=== PATIENT | female | born 1955 | race African-American/Black ===

== ENCOUNTER 2018-08-03 13:14 | Outpatient (CLI) | payer OTHER ==
--- NOTE | 2018-08-03 13:34 | RAD ---
F2 views chest Comparison made previous exam from 07/26/2015. 2 views chest demonstrate cardiomegaly. Areas of scarring and postsurgical vickie seen in the right midlung. Old healed right fifth rib fractures seen. No acute intrathoracic abnormality seen. IMPRESSION: Postsurgical changes seen in the right midlung.
== END 2018-08-03 13:15 | disposition home or self-care (01) ==
LOC: RAD 13:14
PROVIDERS: ATTEND Thoracic Surgery (Cardiothoracic Vascular Surgery)
DX: C78.30 Secondary malignant neoplasm of unspecified respiratory organ (principal); Z98.890 Other specified postprocedural states
CPT/HCPCS: 71046

== ENCOUNTER 2018-11-02 14:54 | Inpatient (IN) | payer MEDICARE, MEDICAID ==
[2018-11-02 16:43] LABS: #Eosinphils 0.1 thou/uL (0.0-0.7); #Lymphocytes 2.7 thou/uL (1.20-3.40); #Monocytes 0.6 thou/uL (0.11-0.59); #Neutrophils 4.7 thou/uL (1.40-6.50); %Basophils 0.2 % (0.0-1.0); %Eosinophils 0.7 % (0.0-10.0); %Lymphocytes 33.5 % (21.0-51.0); %Monocytes 6.9 % (0.0-10.0); %Neutrophils 58.6 % (42.0-75.0); Hemoglobin 10.6 g/dL (12.0-16.0); Mean Corpuscular HGB CONC 33.2 g/dL (32.0-36.0); Mean Corpuscular Hemoglobin 29.1 pg (27.0-31.0); Mean Corpuscular Volume 87.6 fL (78.0-98.0); Mean Platelet Volume 7.8 fL (7.4-10.4); Platelet Count 252 thou/uL (130-400); RBC Distribution Width 15.1 % (11.5-14.5); Red Blood Cell (RBC) Count 3.66 mill/uL (4.20-5.40)
[2018-11-02 17:04] LABS: ALT (SGPT) 24 U/L (8-55); AST (SGOT) 25 U/L (5-34); Alkaline Phosphatase 61 U/L (40-150); Anion Gap 18 mmol/L (10-20); BUN (Urea Nitrogen) 50 mg/dL (9.8-20.1); Bilirubin, Total 0.3 mg/dL (0.2-1.2); Calc. Creatinine Clearance 0 mL/min (70-130); Calcium 9.3 mg/dL (7.8-10.44); Carbon Dioxide 17 mmol/L (23-31); Chloride 108 mmol/L (98-107); Estimated GFR-MDRD 11; Globulin 3.8 g/dL (2.4-3.5); Potassium 5.7 mmol/L (3.5-5.1); Protein, Total 7.8 g/dL (6.0-8.3); Sodium 137 mmol/L (136-145)
[2018-11-02 17:13] LABS: Glucose 58 mg/dL (80-115)
--- NOTE | 2018-11-02 17:25 | RAD ---
PORTABLE AP CHEST X-RAY: 11/02/18 HISTORY: Chest pain. COMPARISON: 08/03/18. FINDINGS: There is linear scarring and radiopaque suture material again seen within the right mid lung zone. T he lungs are otherwise clear. Cardiac silhouette is magnified by projection but stable in size. The p ulmonary vasculature is within normal limits. There is radiopaque suture material also present within the suprahilar region and left upper lung zones. Vascular calcification seen in the thoracic aorta. No other interval change. IMPRESSION: 1. No acute cardiopulmonary process. 2. Postsurgical changes and scarring within the lungs bilaterally. POS: BISI
[2018-11-02] MEDS ORDERED: Sodium Bicarbonate 150 MEQ in Dextrose 5% in Water 1,000 ML IV SCH ×2 (18:15→22:00)
--- NOTE | 2018-11-02 18:25 | ULT ---
US Renal Lt Unilateral: 11/02/2018 5:44 PM CLINICAL HISTORY: Chronic kidney disease. Flank pain. STUDY: Renal ultrasound COMPARISON: None. FINDINGS: Right kidney: Removed Left kidney: Echogenicity: Increased. Masses/cysts: None. Hydronephrosis: None. Calcifications: None. Length: 11.7 cm Limited visualization of the urinary bladder is unremarkable. IMPRESSION: Increased echogenicity of the left kidney is likely secondary to chronic medical renal disease.
[2018-11-02] MEDS ORDERED: Cyclobenzaprine 10 MG TAB PO PRN (23:14)
[2018-11-02] MEDS ORDERED: PROVENTIL INHALER 6.7 G (200 INHALATIONS) INH PRN (23:15)
[2018-11-03] MEDS: Ipratropium Bromide 2.5 ml Neb NEB SCH ×5 (00:04→23:36)
--- NOTE | 2018-11-03 03:50 | HP ---
CHIEF COMPLAINT: Abnormal labs. 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 The patient also thinks she may have some history of congestive heart failure. She believes that is what she had been told by Dr. Valdes at one point. The patient was in [facility] last week apparently with some volume overload. She was seen by Dr. Langford there and the patient was diuresed. She was discharged when she was felt to be euvolemic to have follow up with him. She had blood work today in anticipation of that followup. He subsequently called her and told her that she needed to come back to the hospital, because of problems with her kidneys. She otherwise feels generally okay. REVIEW OF SYSTEMS: She is reporting some stomach cramps secondary to some Kayexalate that was ordered for her earlier. She states that she still makes urine, voids frequently, but low volumes. She also reports that she has generally had low appetite and has had some overall weight loss, but nothing remarkable. All other systems reviewed. All pertinent positives and negatives noted in the history of present illness. PAST MEDICAL HISTORY: Notable for chronic kidney disease, leiomyosarcoma, COPD, hypertension, asthma and the lung and liver mets. PAST SURGICAL HISTORY: Right nephrectomy, hysterectomy, tonsillectomy, bilateral lung wedge resections for metastasis. FAMILY HISTORY: Mother at 63 of a CVA and [place]. Father in his 80s of congestive heart failure. She has 2 brothers with cancer and another brother with end-stage renal disease. SOCIAL HISTORY: The patient smokes 6 cigarettes per day. She routinely drinks 4-5 beers per day, but states she is not really doing that anymore, because of the shear volume of the fluids. Denies drugs. She is , although she and her are not technically still together. She says they remain good friends. She is a full code and her sons, Daryl and Harshal would be her surrogate decision makers should that become necessary. HOME MEDICATIONS: 1. Spiriva HandiHaler 1 inhalation daily. 2. Flovent Diskus 50 mcg inhaled daily. 3. Protonix 40 mg daily. 4. Bystolic 10 mg daily. 5. Albuterol/ipratropium inhaler. 6. Lasix 40 daily. 7. Flexeril 10 t.i.d. 8. Rocaltrol 0.5 daily. 9. Aspirin 81 mg daily. 10. Norvasc 10 daily. 11. Albuterol 2 puffs q.6 hours p.r.n. 12. Hydralazine 50 mg t.i.d. ALLERGIES: TRAMADOL. PHYSICAL EXAMINATION: VITAL SIGNS: Temperature 97.8, pulse 83, respirations 18, O2 saturation 99% on room air, and BP is 168/83. GENERAL APPEARANCE: Age-appropriate female, she is in no distress. She is awake, alert, oriented, pleasant, and cooperative. HEENT: PERRI, no OP lesions. NECK: Supple and symmetric without lymphadenopathy, JVD, or bruits. HEART: Regular rate and rhythm. No murmurs, gallops, or rubs. LUNGS: Clear to auscultation bilaterally. No wheezes or rales. ABDOMEN: Soft, nontender, and nondistended. Positive bowel sounds. No masses. No organomegaly. EXTREMITIES: No cyanosis, clubbing, or edema. PSYCHIATRIC: Normal affect and behavior. NEUROLOGIC: The patient has normal spontaneous movement of all extremities. Cognitively intact. Normal cranial nerve function. SKIN: Has normal turgor. IMAGIN. Chest x-ray shows postsurgical changes, nothing acute. 2. Renal ultrasound shows increased echogenicity of the left kidney, likely secondary to chronic medical renal disease. LABORATORY DATA: White count is 8.0, hemoglobin 10.6, platelets 252. Sodium 137, potassium 5.7, chloride 108, CO2 is 17, BUN 50, creatinine is 4.64 with no prior values noted in our system. Glucose initially 58, subsequent 118. LFTs normal. BNP 527. IMPRESSION AND PLAN: 1. [id number] renal failure. The patient's normal creatinine apparently is in the 3 range. I am not sure of exact details, we do not have any those in our system. She is significantly above that now. She has orders placed from Nephrology for fluids with bicarbonate. We will recheck those values in the morning. 2. Hyperkalemia. She has received a dose of Kayexalate. We will reassess in the morning. 3. Stage IV leiomyosarcoma, followed by Dr. Rios at [facility]. 4. Anemia, likely chronic and secondary to the chronic kidney disease. 5. Chronic obstructive pulmonary disease. We will resume her usual home medications as best we can and make sure she has adequate bronchodilators available. Job ID: [id number]
[2018-11-03 05:31] LABS: Anion Gap 13 mmol/L (10-20); BUN (Urea Nitrogen) 44 mg/dL (9.8-20.1); Calc. Creatinine Clearance 12 mL/min (70-130); Calcium 8.7 mg/dL (7.8-10.44); Carbon Dioxide 25 mmol/L (23-31); Chloride 104 mmol/L (98-107); Estimated GFR-MDRD 13; Glucose 90 mg/dL (80-115); Potassium 4.5 mmol/L (3.5-5.1); Sodium 137 mmol/L (136-145)
[2018-11-03] MEDS: Acetaminophen 650 MG/20.3 ML UDCUP PO PRN ×2 (07:20→17:19)
[2018-11-03] MEDS: Amlodipine 10 MG TAB PO SCH (08:44)
[2018-11-03] MEDS: hydrALAZINE 25 MG TAB PO SCH ×3 (08:44→20:31)
[2018-11-03] MEDS: Nebivolol HCl 5 MG TAB PO SCH (08:44)
[2018-11-03] MEDS: Aspirin Chewable 81 MG TAB PO SCH (08:44)
[2018-11-03] MEDS ORDERED: Spiriva 18 MCG CAP (Box of 5 Caps) INH SCH (09:00)
[2018-11-03] MEDS ORDERED: hydrALAZINE 20 MG/ML VIAL SLOW IVP PRN (10:15)
[2018-11-03] MEDS ORDERED: cloNIDine 0.1 MG TAB PO PRN (10:15)
[2018-11-03] MEDS ORDERED: Sodium Bicarbonate 150 MEQ in Dextrose 5% in Water 1,000 ML IV SCH (10:21)
--- NOTE | 2018-11-03 11:24 | PRG ---
DATE OF SERVICE: SUBJECTIVE: A 62-year-old female being seen for stage 5 chronic kidney disease. The patient denied nausea, vomiting, or chest pain. OBJECTIVE: CONSTITUTIONAL: The patient is awake and alert. VITAL SIGNS: , breathing 16, and blood pressure was 160/88. GENERAL APPEARANCE AND MENTAL STATUS: Fair. HEAD/NECK: Normocephalic. Atraumatic. EYES: EOMI. No deformity. EARS: Clear. No ulcers. NOSE: Intact. No lesions. MOUTH: Clear. No discharge. THROAT: Clear. No exudate. LUNGS: Clear. No crackles. CARDIAC: S1, S2. No rub. ABDOMEN: Benign. Bowel sounds positive. GENITALIA/RECTUM: Luke absent. BACK/EXTREMITIES: Edema 0+. NEUROLOGICAL: Alert and motor intact. SKIN: LYMPHATICS: LABORATORY DATA: Show potassium 4.5, creatinine 4.2. ASSESSMENT AND PLAN: 1. Chronic kidney disease, stage 5, stable. 2. Acute kidney injury, improved. 3. Hyperkalemia, improved. 4. Metabolic acidosis, improved. No indication for dialysis. The patient will need outpatient followup. Job ID: [id number]
--- NOTE | 2018-11-03 11:59 | CON ---
DATE OF CONSULTATION: 11/02/2018 REASON FOR CONSULTATION: Hyperkalemia. HISTORY OF PRESENT ILLNESS: This is a 62-year-old female who presented to the hospital when she was noted to have a potassium of more than 6. The patient has CKD stage 5. The patient denies no headache, numbness, tingling, or weakness. Denies any nausea, vomiting, or chest pain. PAST MEDICAL HISTORY: CKD stage 5, hypertension, COPD, asthma, history of nephrectomy, hysterectomy, tonsillectomy, bilateral lung resection for metastasis. FAMILY HISTORY: Negative for ESRD. ALLERGIES: REVIEWED. MEDICATIONS: Home medication list reviewed. Hospital medication list reviewed. REVIEW OF SYSTEMS: 15-point review of system was performed negative except for positives noted above. GENERAL: HEAD: NECK: No swelling or lumps. NOSE: No epistaxis or discharge. EYES: No diplopia or pain. RESPIRATORY: CARDIOVASCULAR: GASTROINTESTINAL: /JOCKEY AGENT: MUSCULOSKELETAL: No joint pain. NEUROPSYCHIATRIC SYSTEMS: No suicidal ideation. No ideation. SKIN: Denies any rash or ulcer. CONSTITUTIONAL: No fever or chills. PHYSICAL EXAMINATION: GENERAL: The patient is awake and alert. VITAL SIGNS: Afebrile, pulse 75, breathing 16, GENERAL APPEARANCE AND MENTAL STATUS: Fair. HEAD/NECK: Normocephalic. Atraumatic. EYES: EOMI. No deformity. EARS: Clear. No ulcers. NOSE: Intact. No lesions. MOUTH: Clear. No discharge. THROAT: Clear. No exudate. LUNGS: Clear. No crackles. CARDIAC: S1, S2. No rub. ABDOMEN: Benign. Bowel sounds positive. GENITALIA/RECTUM: Luke absent. BACK/EXTREMITIES: Edema 0+. NEUROLOGICAL: Alert and motor intact. SKIN: LYMPHATICS: LABORATORY DATA: Reviewed. ASSESSMENT AND PLAN: 1. Acute kidney injury with chronic kidney disease most likely due to decreased effective arterial blood volume. Continue gentle hydration, acidosis. Start bicarb drip. 2. Hyperkalemia. We will treat with bicarbonate and we will give Kayexalate. 3. Anemia, stable. 4. Medication based on GFR appropriate. No urgent indication for dialysis. Please note, this patient was seen on November 02 at 4 p.m. in the emergency room. Job ID: [id number]
[2018-11-03 12:59] VITALS: BMI 23.3
--- NOTE | 2018-11-03 16:29 | PRG ---
DATE OF SERVICE: 11/03/2018 PRIMARY CARE: [facility] in [place]. SUBJECTIVE: A 62-year-old female admitted yesterday for acute kidney injury. She was started on IV fluids. No nausea, vomiting, diarrhea reported. No chest pain, shortness of breath, palpitations. Current medications were reviewed. Telemetry monitoring by my review showed sinus rhythm. OBJECTIVE: VITAL SIGNS: Temperature 98.3, pulse rate of 78, respirations of 18, blood pressure 138/69, O2 saturation 99% on room air. GENERAL: A 62-year-old female in no apparent distress. LUNGS: Clear to auscultation bilaterally. No wheezing, rales, rhonchi. HEART: S1, S2 present. Regular rate and rhythm. No rubs or gallops. ABDOMEN: Soft, nontender. Bowel sounds present. No rebound or guarding. EXTREMITIES: No edema or calf tenderness. NEUROLOGIC: Grossly nonfocal. PSYCHIATRIC: Alert, awake, oriented x3. REVIEW OF SYSTEMS: As discussed above, no new focal neurologic deficit. No chest pain or palpitations. CURRENT MEDICATIONS: Reviewed. The patient is on sodium bicarbonate drip along with amlodipine, hydralazine, Bystolic, and Spiriva. IMPRESSION: 1. Acute kidney injury on chronic kidney disease. Baseline creatinine unavailable. 2. Metabolic acidosis on bicarbonate drip. 3. Hyperkalemia. 4. Hypoglycemia, improved. 5. Chronic anemia. 6. Stage IV leiomyosarcoma. 7. Chronic obstructive pulmonary disease. 8. Hypertension. PLAN: We will continue to monitor as inpatient. Continue amlodipine, hydralazine, and Bystolic. We will reduce sodium bicarbonate drip to 50 mL/h. I discussed with Dr. Montenegro, Nephrology. We will continue renal diet. Recheck basic metabolic profile in a.m. DVT prophylaxis with SCDs. The patient was advised to ambulate, walking program will be consulted. Job ID: [id number]
[2018-11-04] MEDS: Ipratropium Bromide 2.5 ml Neb NEB SCH (07:09)
[2018-11-04 07:53] LABS: Albumin 3.5 g/dL (3.4-4.8); Anion Gap 14 mmol/L (10-20); BUN (Urea Nitrogen) 42 mg/dL (9.8-20.1); BUN/Creatinine Ratio 9.98; Calc. Creatinine Clearance 12 mL/min (70-130); Calcium 9.1 mg/dL (7.8-10.44); Carbon Dioxide 30 mmol/L (23-31); Chloride 100 mmol/L (98-107); Estimated GFR-MDRD 13; Glucose 96 mg/dL (80-115); Phosphorus 4.5 mg/dL (2.3-4.7); Potassium 4.3 mmol/L (3.5-5.1); Sodium 140 mmol/L (136-145)
[2018-11-04] MEDS: Amlodipine 10 MG TAB PO SCH (09:47)
[2018-11-04] MEDS: Aspirin Chewable 81 MG TAB PO SCH (09:47)
[2018-11-04] MEDS: hydrALAZINE 25 MG TAB PO SCH (09:48)
[2018-11-04] MEDS: Nebivolol HCl 5 MG TAB PO SCH (09:49)
--- NOTE | 2018-11-04 11:34 | PRG ---
DATE OF SERVICE: 11/04/2018 SUBJECTIVE: A 62-year-old female being seen for chronic kidney disease. The patient denied nausea, vomiting, or chest pain. OBJECTIVE: CONSTITUTIONAL: The patient is awake and alert. VITAL SIGNS: Afebrile, pulse 81, breathing 16, blood pressure 152/74. GENERAL APPEARANCE AND MENTAL STATUS: Fair. HEAD/NECK: Normocephalic. Atraumatic. EYES: EOMI. No deformity. EARS: Clear. No ulcers. NOSE: Intact. No lesions. MOUTH: Clear. No discharge. THROAT: Clear. No exudate. LUNGS: Clear. No crackles. CARDIAC: S1, S2. No rub. ABDOMEN: Benign. Bowel sounds positive. GENITALIA/RECTUM: Luke absent. BACK/EXTREMITIES: Edema 0+. NEUROLOGICAL: Alert and motor intact. SKIN: LYMPHATICS: LABORATORY DATA: Reviewed. ASSESSMENT AND PLAN: 1. Chronic kidney disease, stage 5, stable. 2. Hypertension, stable. 3. Anemia, stable. 4. Hyperkalemia, resolved. The patient can follow up to see Dr. Langford in one week. Job ID: [id number]
[2018-11-04 14:29] VITALS: BP 165/95; TEMP 98.1
--- NOTE | 2018-11-04 15:17 | DIS ---
DATE OF ADMISSION: 11/02/2018 DATE OF DISCHARGE: 11/04/2018 DISCHARGE DISPOSITION: Home. FOLLOWUP: 1. Follow up with primary care physician at [facility] in 1 week. 2. Follow up with Dr. Langford in 1 week. 3. Basic metabolic profile after 1 week is recommended. Primary care physician advised to follow. ALLERGIES: THE PATIENT IS ALLERGIC TO TRAMADOL. THE PATIENT WAS SEEN AND EXAMINED ON THE DAY OF DISCHARGE. DENIES ANY NEW COMPLAINTS. NO CHEST PAIN, SHORTNESS OF BREATH, PALPITATIONS. DISCHARGE MEDICATIONS: 1. Sodium bicarbonate 650 mg b.i.d. 2. The patient was advised to take Lasix as needed depending on the edema and weight gain. 3. All other home medications were left unchanged. DIAGNOSTIC TESTS: Creatinine on admission 4.64, at discharge 4.21; potassium on admission 5.7, at discharge 4.3; bicarbonate was 17 on admission and 30 at discharge. INPATIENT PORTER SAMPLE CASE: Nephrology, Dr. Montenegro. BRIEF HOSPITAL COURSE: The patient is a 62-year-old female with CKD, hypertension, and stage IV leiomyosarcoma, presented to the emergency room with abnormal labs. Please refer to the history and physical for further details. The patient was admitted to the hospital with a diagnosis of acute kidney injury on chronic kidney disease stage 3 with significant metabolic acidosis as well as hyperkalemia. She was started on sodium bicarbonate drip. She was also evaluated by Nephrology, Dr. Montenegro. Her electrolytes have significantly improved. Creatinine at discharge is 4.2 from 4.23 yesterday. I discussed with Dr. Langford. Dr. Langford recommended sodium bicarbonate 650 mg b.i.d. She was advised to avoid nephrotoxic agent. Renal ultrasound showed increased echogenicity of the left kidney. There was no obstructive uropathy identified. She was advised to get a basic metabolic profile next week. She appears stable for discharge. FINAL DIAGNOSES: 1. Acute kidney injury on chronic kidney disease stage 4. Baseline creatinine is between 3.5 to 4 per Nephrology. 2. Metabolic acidosis, improved. 3. Hyperkalemia, resolved. 4. Hypoglycemia, resolved. 5. Chronic anemia. 6. Stage IV leiomyosarcoma. 7. Chronic obstructive pulmonary disease. 8. Hypertension. PLAN: Plan of care was discussed with the patient in detail. She stated understanding. Job ID: [id number]
== END 2018-11-04 14:38 | disposition home or self-care (01) | DRG 683 ==
LOC: ERS 14:54 → 2NO 21:45
PROVIDERS: ADMIT Internal Medicine; ATTEND Internal Medicine
DX: N17.9 Acute kidney failure, unspecified (principal); C49.9 Malignant neoplasm of connective and soft tissue, unspecified; C78.7 Secondary malignant neoplasm of liver and intrahepatic bile duct; C78.00 Secondary malignant neoplasm of unspecified lung; I13.0 Hypertensive heart and chronic kidney disease with heart failure and stage 1 through stage 4 chronic kidney disease, or unspecified chronic kidney disease; E87.2 Acidosis; N18.4 Chronic kidney disease, stage 4 (severe); I50.9 Heart failure, unspecified; E16.2 Hypoglycemia, unspecified; E87.5 Hyperkalemia; D63.1 Anemia in chronic kidney disease; J44.9 Chronic obstructive pulmonary disease, unspecified; F17.210 Nicotine dependence, cigarettes, uncomplicated; Z79.51 Long term (current) use of inhaled steroids; Z79.82 Long term (current) use of aspirin; Z79.899 Other long term (current) drug therapy; Z88.6 Allergy status to analgesic agent
CPT/HCPCS: 36415; 36416; 71045; 76775; 80048; 80053; 80069; 83880; 84484; 85025; 93005; 94640; 96360; 96361; J7070

== ENCOUNTER 2018-11-22 10:14 | Outpatient (CLI) | payer MEDICARE, MEDICAID ==
--- NOTE | 2018-11-22 11:41 | ULT ---
BILATERAL UPPER EXTREMITY VENOUS DOPPLER ULTRASOUND FOR DIALYSIS ACCESS: Date: 11/22/18 HISTORY: Chronic renal failure FINDINGS: RIGHT UPPER EXTREMITY: The right basilic vein was not visualized in the right upper extremity. There is no compression in the right cephalic vein in the arm and antecubital fossa. The right cephalic vein measures 1.3 mm in the proximal forearm and 1.0 mm in the mid forearm. It was not visualized in the distal forearm. The right brachial artery measures 3.1 mm, radial artery measures 1.9 mm, and ulnar artery measures 2 .4 mm. LEFT UPPER EXTREMITY: The left cephalic vein measures 0.5 mm in the proximal arm, 0.5 mm in the mid arm, 0.7 mm in the dist al arm, 2.1 mm in the antecubital fossa, 1.7 mm in the proximal forearm, 0.5 mm in the mid forearm, a nd 1.0 mm in the distal forearm. The left basilic vein was not visualized in the proximal arm and the entire left forearm. It measured 2.9 mm in the mid arm, 1.8 mm in the distal arm, and 1.4 mm in the antecubital fossa. The left brachial artery measures 3.6 mm, radial artery measures 1.4 mm, and ulnar artery measures 1. 1 mm. POS: TPC
== END 2018-11-22 10:15 | disposition home or self-care (01) ==
LOC: ULT 10:14
PROVIDERS: ATTEND Internal Medicine Nephrology
DX: Z01.818 Encounter for other preprocedural examination (principal); I12.9 Hypertensive chronic kidney disease with stage 1 through stage 4 chronic kidney disease, or unspecified chronic kidney disease; N18.5 Chronic kidney disease, stage 5
CPT/HCPCS: 93970; G0365

== ENCOUNTER 2018-12-16 07:40 | Day surgery (SDC) | payer MEDICARE, MEDICAID ==
[2018-12-15 10:21] VITALS: BMI 23.0
[2018-12-16 08:41] LABS: #Basophils 0.1 thou/uL (0.0-0.2); #Lymphocytes 1.9 thou/uL (1.20-3.40); #Monocytes 0.4 thou/uL (0.11-0.59); #Neutrophils 3.1 thou/uL (1.40-6.50); %Basophils 0.9 % (0.0-1.0); %Eosinophils 0.7 % (0.0-10.0); %Lymphocytes 34.7 % (21.0-51.0); %Monocytes 7.3 % (0.0-10.0); %Neutrophils 56.4 % (42.0-75.0); Hemoglobin 10.9 g/dL (12.0-16.0); Mean Corpuscular HGB CONC 32.7 g/dL (32.0-36.0); Mean Corpuscular Hemoglobin 28.6 pg (27.0-31.0); Mean Corpuscular Volume 87.3 fL (78.0-98.0); Mean Platelet Volume 7.8 fL (7.4-10.4); Platelet Count 251 thou/uL (130-400); RBC Distribution Width 14.8 % (11.5-14.5); Red Blood Cell (RBC) Count 3.81 mill/uL (4.20-5.40); White Blood Cell (WBC) Count 5.5 thou/uL (4.8-10.8)
[2018-12-16 08:59] LABS: Anion Gap 14 mmol/L (10-20); BUN (Urea Nitrogen) 61 mg/dL (9.8-20.1); Calc. Creatinine Clearance 13 mL/min (70-130); Calcium 10.2 mg/dL (7.8-10.44); Carbon Dioxide 21 mmol/L (23-31); Chloride 108 mmol/L (98-107); Estimated GFR-MDRD 14; Glucose 96 mg/dL (80-115); Potassium 5.2 mmol/L (3.5-5.1); Sodium 138 mmol/L (136-145)
[2018-12-16] MEDS ORDERED: Midazolam HCl 2 mg/2 ml Vial ONE ×2 (09:02→09:50)
[2018-12-16] MEDS ORDERED: Fentanyl 100 MCG/2 ML VIAL ONE ×2 (09:02→09:50)
[2018-12-16] MEDS ORDERED: ceFAZolin Sodium (SDC) 2 GM/100 ML BAG ONE (09:07)
[2018-12-16] MEDS ORDERED: Bupivacaine HCl 0.5%/Epinephrine 1:200,000/PF 30 ml Vial ONE (09:14)
[2018-12-16] MEDS ORDERED: Protamine Sulfate 50 MG/5 ML VIAL ONE (09:31)
[2018-12-16] MEDS ORDERED: Bupivacaine/Epinephrine 0.25% 30 ML VIAL ONE (09:31)
[2018-12-16] MEDS ORDERED: Heparin 5,000 UNITS/ML VIAL ONE (09:31)
[2018-12-16] MEDS ORDERED: Lidocaine 2% PF 5 ML VIAL ONE (09:31)
[2018-12-16] MEDS ORDERED: PROPOFOL 200 MG/20 ML VIAL ONE (09:45)
[2018-12-16] MEDS ORDERED: Ketamine 50 MG/ML (10ML VIAL) ONE (09:50)
[2018-12-16] MEDS ORDERED: Propofol 500 MG/50 ML VIAL ONE (09:50)
[2018-12-16] MEDS ORDERED: Ondansetron ODT 4 MG TAB ONE (14:14)
--- NOTE | 2018-12-17 09:33 | OP ---
DATE OF PROCEDURE: 12/16/2018 PROCEDURE: Right upper arm radiocephalic AV fistula. PREOPERATIVE DIAGNOSIS: End-stage renal failure. POSTOPERATIVE DIAGNOSIS: End-stage renal failure. HISTORY: Ms. Aleman is a 63-year-old woman with progressing renal failure who will require dialysis in the near future. Recommendation was made to proceed with AV fistula or graft on the patient. She is left-handed, so a right-sided access is planned. DESCRIPTION OF PROCEDURE: After informed consent was obtained and appropriate preoperative antibiotics administered, the patient was taken to the operating room, where she was placed in the supine position and anesthesia was administered. A regional block had been placed preoperatively and the adequacy of the block was confirmed. She was prepped and draped in standard sterile fashion and an incision made between the radial artery and cephalic vein at the wrist. The cephalic vein appeared potentially usable and was dissected free circumferentially, ligated and divided distally, capsulated and interrogated. However, a stenosis was encountered in the forearm beyond which the 2 mm cardiac dilator could not be passed, so this vein was ligated and attention turned to the antecubital fossa. An incision was made over the antecubital fossa and dissection carried down to the antecubital vein. This appears to be adequate caliber and quality to support a fistula, so this was dissected free circumferentially, ligated and divided distally and spatulated and interrogated with cardiac dilators. This vein accepted up to 3.5 mm dilator up the upper arm cephalic vein, which was felt to be adequate for primary fistula use. The vein was flushed with heparinized saline and clamped with a bulldog clamp. The radial artery was then dissected free circumferentially and was found to be of adequate quality and caliber to support a fistula. Heparin was administered systemically and allowed to circulate for 3 minutes. Following which, the radial artery was clamped proximally and distally. An anterior arteriotomy was created with an 11 blade and extended with Ontiveros scissors. An end-to-side anastomosis was created with a 6-0 Prolene suture with excellent technical results. Prior to tying down the anastomosis, the inflow was released flushing the anastomosis, following which the anastomosis was secured and flow was established first through the fistula and then through the distal radial artery. The patient had a strong radial pulse at the wrist following the release of clamp and a good thrill in the upper arm cephalic vein outflow. The vein was examined by Doppler and found to have a good Doppler signal to the level of the shoulder. The wounds were irrigated and hemostasis verified. The subcutaneous tissues were reapproximated at both incisions with 3-0 Monocryl suture and the skin was closed with 4-0 Monocryl suture and Dermabond dressings were placed. Once the Dermabond was dry, an Otilio wrap was placed. The patient was taken to Day Stay in good condition. estimated blood loss was minimal. There were no complications. There were no specimens. Job ID: [id number]
== END 2018-12-16 15:20 | disposition home or self-care (01) ==
LOC: SDC 07:40
PROVIDERS: ATTEND Surgery
PROC: 031B0ZF Bypass Right Radial Artery to Lower Arm Vein, Open Approach (ICD-10-PCS; principal; 2018-12-16)
DX: I12.0 Hypertensive chronic kidney disease with stage 5 chronic kidney disease or end stage renal disease (principal); N18.6 End stage renal disease; I87.1 Compression of vein; E78.00 Pure hypercholesterolemia, unspecified; M06.9 Rheumatoid arthritis, unspecified; F32.9 Major depressive disorder, single episode, unspecified; J43.9 Emphysema, unspecified; Z88.5 Allergy status to narcotic agent; Z79.899 Other long term (current) drug therapy
CPT/HCPCS: 36415; 80048; 85025; J0670; J0690; J1644; J2001; J2250; J2704; J2720; J3010; Q0162

== ENCOUNTER 2019-01-20 00:23 | Observation (INO) | payer MEDICARE, MEDICAID ==
[2019-01-20] MEDS ORDERED: Morphine 4 MG/ML VIAL ONE (01:02)
[2019-01-20] MEDS ORDERED: Ondansetron PF 4 MG/2 ML Vial ONE (01:11)
[2019-01-20] MEDS ORDERED: HYDROcodone/Acetaminophen 5/325 mg Tablet PO PRN (02:41)
[2019-01-20] MEDS: HYDROcodone/Acetaminophen 5/325 mg Tablet PO PRN ×2 (03:11→10:26)
[2019-01-20 04:26] LABS: #Basophils 0.1 thou/uL (0.0-0.2); #Lymphocytes 1.6 thou/uL (1.20-3.40); #Monocytes 0.6 thou/uL (0.11-0.59); %Basophils 0.8 % (0.0-1.0); %Eosinophils 0.2 % (0.0-10.0); %Lymphocytes 21.8 % (21.0-51.0); %Monocytes 8.2 % (0.0-10.0); %Neutrophils 69.1 % (42.0-75.0); Hemoglobin 9.9 g/dL (12.0-16.0); Mean Corpuscular HGB CONC 32.9 g/dL (32.0-36.0); Mean Corpuscular Hemoglobin 28.9 pg (27.0-31.0); Mean Corpuscular Volume 87.8 fL (78.0-98.0); Platelet Count 183 thou/uL (130-400); RBC Distribution Width 15.3 % (11.5-14.5); Red Blood Cell (RBC) Count 3.43 mill/uL (4.20-5.40); White Blood Cell (WBC) Count 7.3 thou/uL (4.8-10.8)
[2019-01-20 04:40] LABS: Lactic Acid 0.4 mmol/L (0.5-2.2)
[2019-01-20 04:43] LABS: Anion Gap 15 mmol/L (10-20); BUN (Urea Nitrogen) 40 mg/dL (9.8-20.1); Calc. Creatinine Clearance 15 mL/min (70-130); Calcium 9.4 mg/dL (7.8-10.44); Carbon Dioxide 20 mmol/L (23-31); Chloride 110 mmol/L (98-107); Estimated GFR-MDRD 16; Glucose 106 mg/dL (80-115); Sodium 141 mmol/L (136-145)
[2019-01-20 06:00] LABS: Hemoglobin 9.5 g/dL (12.0-16.0)
[2019-01-20] MEDS ORDERED: Acetaminophen 325 MG TAB PO PRN (08:57)
[2019-01-20] MEDS ORDERED: Bisacodyl 5 MG TAB PO PRN (08:57)
[2019-01-20] MEDS ORDERED: Non-Formulary Item 1 EACH (Ipratropium/Albuterol Sulfate 3 ML) ADD CANAL PRN (09:03)
[2019-01-20] MEDS ORDERED: Cyclobenzaprine 10 MG TAB PO PRN (09:03)
[2019-01-20] MEDS ORDERED: Non-Formulary Item 1 EACH (Fluticasone Propionate [Flovent Diskus] 50 MCG) ALT NARE PRN (09:03)
[2019-01-20] MEDS ORDERED: Furosemide 40 MG TAB PO SCH (09:15)
[2019-01-20] MEDS ORDERED: hydrALAZINE 25 MG TAB PO SCH (09:15)
[2019-01-20] MEDS ORDERED: Amlodipine 10 MG TAB PO SCH (09:15)
[2019-01-20] MEDS ORDERED: PROVENTIL INHALER 6.7 G (200 INHALATIONS) INH PRN (09:15)
[2019-01-20] MEDS ORDERED: Calcitriol 0.25 MCG CAP PO SCH (09:15)
[2019-01-20] MEDS ORDERED: Escitalopram Oxalate 10 mg Tablet PO SCH (09:15)
[2019-01-20] MEDS ORDERED: Nebivolol HCl 5 MG TAB PO SCH (09:15)
[2019-01-20] MEDS: Ondansetron PF 4 MG/2 ML Vial IVP PRN ×2 (10:14→17:40)
[2019-01-20] MEDS: Nicotine 14 MG PATCH TD SCH (10:21)
--- NOTE | 2019-01-20 10:23 | HP ---
PRIMARY CARE PROVIDER: Dr. Zoila Carlin. CHIEF COMPLAINT: Right wrist pain. HISTORY OF PRESENT ILLNESS: Ms. Aleman is a pleasant 63-year-old lady, who was seen at [facility] on January 20, 2019 following transfer from [facility] in [place]. She has a history of chronic kidney disease. On December 16, 2018, she underwent placement of right upper arm radiocephalic AV fistula. She reports that she was doing well. She denies any trauma. Two days ago, she developed pain in her right wrist. She also reports swelling. She describes the pain as sharp, 10/10, radiating up her arm, no known aggravating or relieving factors. It was accompanied by nausea and vomiting since yesterday. She reports vomiting four or five times. She denies any hematemesis. She denies any blood in stool. She denies any black stools. In the emergency room at [facility], she was found to have a hemoglobin of 6.1. She denies any chest pain or lightheadedness. She denies any fevers or chills. She denies any abdominal pain. The patient denies receiving any blood products. Her repeat hemoglobin was found to be 9.9 at this facility. REVIEW OF SYSTEMS: All systems were reviewed and found to be negative except for the pertinent positives mentioned above. PAST MEDICAL HISTORY: Hypertension, leiomyosarcoma stage 4 status post surgery, asthma, COPD, chronic kidney disease. SURGICAL HISTORY: Breast biopsy, hysterectomy, right nephrectomy, tonsillectomy, tubal ligation. SOCIAL HISTORY: The patient smokes 1/4 pack of cigarettes a day. She denies recreational drug use. She reports occasional alcohol use. FAMILY HISTORY: She denies any family history of premature coronary artery disease. CODE STATUS: I discussed her code status. She is full code. ALLERGIES: TRAMADOL. CURRENT MEDICATIONS: 1. Albuterol p.r.n. 2. Amlodipine 10 mg daily. 3. Calcitriol 0.5 mcg daily. 4. Flexeril p.r.n. 5. Lexapro 5 mg daily. 6. Flovent 50 mcg to each naris as needed. 7. Lasix 40 mg daily. 8. Hydralazine 50 mg 3 times a day. 9. DuoNebs p.r.n. 10. Bystolic 10 mg daily. 11. Zofran p.r.n. 12. Protonix 40 mg daily. 13. Spiriva 18 mcg inhalation daily. PHYSICAL EXAMINATION: GENERAL: On examination, Ms. Aleman is awake and alert, not in acute distress. VITAL SIGNS: Blood pressure is 165/81, pulse 81, respiratory rate 16, and oxygen saturation 99% on room air. She is afebrile. BMI is 23.8. EYES: No scleral icterus. No conjunctival pallor. ENT: Moist mucosal membranes. No oropharyngeal erythema or exudates. NECK: Supple, nontender, trachea is midline. RESPIRATORY: Accessory muscles of breathing are not active. Chest wall movements are symmetric bilaterally. LUNGS: Clear to auscultation without wheeze, rhonchi, or crepitations. CARDIOVASCULAR: S1 and S2 are heard, regular. Peripheral pulses palpable. Bruit and thrill present over AV fistula in the right cubital fossa. ABDOMEN: Soft, nontender, bowel sounds heard. MUSCULOSKELETAL: She has swelling over the dorsum of the right wrist. She has decreased range of movement at the right wrist secondary to pain. NEUROLOGIC: Cranial nerves 2 through 12 are intact. No neurologic deficits in the right upper extremity. SKIN: Swelling over the dorsum of the right wrist. LYMPHATIC: No cervical lymphadenopathy. PSYCHIATRIC: Normal mood, normal affect. The patient is oriented to person, place, and time. LABORATORY DATA: Ms. Aleman' labs and investigations were reviewed. 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 ASSESSMENT AND PLAN: Ms. Aleman is a pleasant 63-year-old lady, who was seen at [facility] on January 20, 2019. Her problem list includes. 1. Right wrist pain: Etiology is unclear. We will check ultrasound of the swelling on the dorsum of the wrist to rule out abscess. We will consult Orthopedic Surgery Service for opinion and help with management. 2. Anemia: The patient was initially transferred to this facility for concern over anemia. Her repeat hemoglobin here was found to be 9.9. It was 10.9 on December 16, 2018. We will continue to monitor hemoglobin. Given the positive fecal occult blood test, we will consult GI Service for opinion and help with management. 3. Hypertension: We will resume the patient's home medications, monitor vital signs and titrate antihypertensives as needed. 4. Depression: Mild, stable, continue sertraline. 5. Gastroesophageal reflux disease: Stable. 6. Chronic kidney disease: The patient to follow up with Nephrology Service as outpatient. 7. Chronic obstructive pulmonary disease: Stable. Many thanks for allowing me to participate in your patient's care. Please feel free to contact me with any questions or concerns. LEVEL OF RISK: Moderate. LEVEL OF COMPLEXITY: Moderate. Job ID: [id number]
--- NOTE | 2019-01-20 10:26 | ULT ---
US Extremity NonVasc Complete History: Swelling. Pain. Comparison: None. Findings: The patient was scanned initially by the technologist and then the by the radiologist in re al-time. At the level of the wrist there is high-grade tenosynovitis with marked synovial thickening of the se cond and third extensor compartments. Moderate tenosynovitis of the fourth extensor compartment. No tear is appreciated. Within the joint itself there is extensive synovitis of the radiocarpal joint. Incidental note is made of a accessory ossicle, the os styloideum, between the second and third metac arpal bases. Impression: 1. Extensive tenosynovitis of the second third and moderate tenosynovitis of the fourth extensor tend on compartments at the level of the wrist. 2. High-grade synovitis of the wrist joint. 3. Incidental note is made of a carpal boss, os styloideum, between the second and third metacarpal b ases.
[2019-01-20] MEDS: Ipratropium Bromide 2.5 ml Neb NEB SCH ×4 (12:23→19:07)
[2019-01-20] MEDS ORDERED: Ketorolac Tromethamine 30 MG/ML VIAL IVP SCH (12:45)
[2019-01-20] MEDS: hydrALAZINE 25 MG TAB PO SCH ×2 (14:46→21:07)
--- NOTE | 2019-01-20 17:58 | CON ---
DATE OF CONSULTATION: This is Jun Cooper PA-C dictating a report for Cisco Rivers MD. We were asked by Dr. Bernal to see the patient. HISTORY OF PRESENT ILLNESS: The patient was admitted to the hospital for some anemia, and she has more complaints of right wrist pain. In December, she had AV fistula placed. She had an incision over her volar medial area, and in that area on the dorsal aspect of her hand, it is quite swollen and painful. She is able to move her wrist, but it is very tender. She can extend a little bit, but has more ease with flexion. She is able to move all her digits. Does not complain of any numbness or tingling in the digits, but does have quite a bit of pain. There is a lot of tenderness over that incision area where the fistula was placed. Currently, she is afebrile. Her labs look good. Her WBCs were 7.3. She recalls no injury to that wrist, although x-rays from [facility] do show a non healed scaphoid, but to her recollection, she cannot remember ever hurting her wrist. PAST MEDICAL HISTORY: Positive for hypertension; leiomyosarcoma stage IV, status post surgery; asthma; COPD; chronic kidney disease. PAST SURGICAL HISTORY: Breast biopsy, hysterectomy, right nephrectomy, tonsillectomy, tubal ligation, and the AV fistula placement. SOCIAL HISTORY: Continues to smoke less than a half a pack cigarettes a day. No drug use. Very intermittent occasional alcohol use. FAMILY HISTORY: For this visit is noncontributory in regard to the wrist. ALLERGIES: TRAMADOL. CURRENT MEDICATIONS: 1. Albuterol. 2. Amlodipine. 3. Calcitriol. 4. Flexeril. 5. Lexapro. 6. Flovent. 7. Lasix. 8. Hydralazine. 9. DuoNebs. 10. Bystolic. 11. Zofran. 12. Protonix. 13. Spiriva. REVIEW OF SYSTEMS: Some nausea, some vomiting yesterday. She just recently got some medications in her IV for nausea, so she is a little bit sleepy, but most of her complaints are of that right wrist pain. Rest of the review of systems currently is negative as discussed. PHYSICAL EXAMINATION: GENERAL: Well-nourished, well-developed female, alert, pleasant, and in moderate distress, especially in the right wrist. Speech clear. Answers questions appropriately. She is alert and oriented x3. HEENT: Face symmetric. Tongue midline. NECK: Supple. Trachea midline. RESPIRATORY: 16 respirations per minute. No distress. EXTREMITIES: Upper extremities; equal size, shape, symmetry. Normal bulk and tone with the exception of the right wrist. Over her wrist incision, there is some edema and into the dorsum of the wrist. She is quite tender to palpation throughout the wrist laterally more than medially. She is able to flex the wrist okay, but extension is a bit painful. She is moving all of her digits okay, but all of these increased pain. I do not feel a great deal of warmth over the swelling in her hand compared to the left wrist. Again, she is afebrile and her white blood cell count is normal. Lower extremities, normal exam. She just got through walking to the bathroom, and other than being a little woozy from her antinausea medication, her gait is stable. DIAGNOSTIC DATA: X-rays viewed and discussed with Dr. Rivers show a non healed scaphoid injury. She did have an ultrasound of that hand, and it showed some inflammatory process with some edema and inflammation and fluid in her wrist. LABORATORY DATA: Again, her white blood cell count was 7.3. Vital signs; temperature 97.8. Her blood pressure was up at 196/88. ASSESSMENT: Right wrist pain with x-ray evidence of non healed scaphoid injury and edema and pain. PLAN: At this point, I spoke with Dr. Rivers. We will get her in a Velcro wrist splint for immobility to help with the pain. She can wear that as needed, also heat, ice, elevation. Her BUN and creatinine are quite high, so giving her anti-inflammatories is not prudent for her. She will have to try Tylenol, maybe some mild narcotics if her pain gets much worse. I think some physical therapy would help. Plan is to have her follow up with Dr. Figeuroa on an outpatient basis in a few weeks. Hopefully, at this time, the inflammatory process will simmer down. Job ID: [id number]
--- NOTE | 2019-01-21 01:33 | CON ---
DATE OF CONSULTATION: 01/20/2019 REASON FOR CONSULTATION: Anemia, possible GI bleed, positive fecal occult blood test. CONSULTING PROVIDER: Chandrakant Bernal MD. HISTORY OF PRESENT ILLNESS: The patient is a 63-year-old female with past medical history of hypertension, asthma, COPD, chronic kidney disease, now status post arteriovenous fistula placement approximately 1 month ago, chronic hepatitis C with no clear indication of treatment and leiomyosarcoma with metastatic disease status post multiple surgeries, presenting with complaints of right wrist pain. She states that she had her arteriovenous fistula placement approximately 1-month ago and immediately after the procedure had mildly increased right wrist pain. This wrist pain resolved within a few days after the procedure, and she was doing well until yesterday when she began having significantly increased right wrist pain that was similar to after her surgery. She also complains of a history of carpal tunnel syndrome for which she had undergone a tunnel release in the past, but this pain is dissimilar when compared to that one. With this increasing right wrist pain, it prompted her to seek healthcare assistance at [facility] ER, where she was further evaluated. As a part of her workup, she was noted to have a mild anemia when compared to baseline with fecal occult blood test in the ER positive. However, she denies any episodes of overt GI bleeding including no episodes of hematemesis, melena, or hematochezia. She has been having approximately 1 solid bowel movement per day with no difficulty with defecation. She is currently following up with [facility] in relation to her leiomyosarcoma. She does endorse some nausea vomiting with nonbloody emesis that would occur around once monthly and then resolves on its own and she has lost approximately 30 pounds since June 2007 after her surgery at that time. Otherwise, she denies any fevers, chills, hematemesis, melena, hematochezia, dysphagia, odynophagia, diarrhea, or constipation. REVIEW OF SYSTEMS: A 10-category review of systems was obtained with all responses negative except for the pertinent positives as listed in HPI. PAST MEDICAL HISTORY: As per HPI. PAST SURGICAL HISTORY: Breast biopsy, hysterectomy, right nephrectomy, tonsillectomy, bilateral tubal ligation, and lung surgery for resection of leiomyosarcoma. FAMILY HISTORY: She denies any GI malignancies. SOCIAL HISTORY: Smokes approximately 1/4 to 1/2 pack of cigarettes daily, but denies any further marijuana use (had been using in the past). Does drink alcohol occasionally. OUTPATIENT MEDICATIONS: Reviewed. ALLERGIES: TRAMADOL. PHYSICAL EXAMINATION: VITAL SIGNS: Temperature 98.3, pulse 72, blood pressure 140/77, respiratory rate 16 saturating 98% on room air. GENERAL: The patient is lying in bed, in no acute distress. Alert and oriented x4. HEENT: Normocephalic, atraumatic. NECK: Supple. No JVD or scleral icterus noted. CARDIOVASCULAR: Regular rate and rhythm with no discernible murmurs, gallops, or rubs. RESPIRATORY: Clear to auscultation bilaterally with no discernible wheezes or rales. ABDOMEN: Normoactive bowel sounds. Soft, nontender, nondistended. EXTREMITIES: No cyanosis, clubbing, or edema. LABORATORY DATA: CBC with a white blood cell count of 7.3, hemoglobin 9.5, hematocrit 30.1, platelets 183. Chemistry with a sodium of 141, potassium 4.0, chloride 110, CO2 20, BUN 40, creatinine 3.46, glucose 106. IMAGING DATA: No current GI imaging is available for review. ASSESSMENT AND PLAN: The patient is a 63-year-old female with past medical history of hypertension, asthma, chronic obstructive pulmonary disease, chronic kidney disease, status post arteriovenous fistula placement approximately 1 month ago, chronic hepatitis C infection (no record of treatment) and stage IV leiomyosarcoma with pulmonary resections in June of 2018, presenting with right wrist pain and anemia. Anemia. The patient was initially admitted to the hospital for increasing right wrist pain that is similar to pain that she experienced immediately after her placement of the arteriovenous fistula. However, on routine labs, she was noted to have anemia, which is slightly decreased when compared to baseline. However, at this time she denies any overt evidence of GI bleeding with a fecal occult blood test positive that is the only indicator of any bleeding within the gastrointestinal tract. Given the fact that the fecal occult blood test is a colon cancer screening test only, it is a poor tool to use to assess for active or recent gastrointestinal bleeding. At this time, given the lack of overt gastrointestinal bleeding and only a slight decrease in her H and H when compared to baseline, this anemia could be multifactorial. Differential could include gastrointestinal bleeding, anemia of renal disease, anemia of chronic kidney disease, intravascular hemolysis and/or underlying malignancy (leiomyosarcoma). RECOMMENDATIONS: 1. We would obtain iron indices in addition to reticulocyte count for further characterization of this anemia. 2. We will continue to trend her H and H and transfuse as necessary to maintain an H and H of 7/. 3. Continue to monitor clinically for signs of active GI bleeding. 4. Pin control per primary team. 5. Endoscopic evaluation is not indicated at this time. 6. We will defer to results of her iron indices for further recommendations regarding intraluminal evaluation. 7. We will continue to follow. Please call with any questions. Job ID: [id number]
--- NOTE | 2019-01-21 01:53 | CON ---
DATE OF CONSULTATION: 01/20/2019 CONSULTING PHYSICIAN: Dr. Bernal. REASON FOR CONSULT: Acute kidney injury on chronic kidney disease. REASON FOR ADMISSION: Right wrist pain. HISTORY OF PRESENT ILLNESS: 63-year-old female with history of chronic kidney disease stage 5, hypertension, leiomyosarcoma, COPD, came to the hospital with right wrist pain and swelling. The patient recently had a fistula placement on December 16 and is ready to be used, but patient denies any other uremic symptoms. No nausea, vomiting, chest pain. PAST MEDICAL HISTORY: Positive for hypertension, leiomyosarcoma, CKD, COPD, asthma. PAST SURGICAL HISTORY: Breast biopsy, hysterectomy, nephrectomy, tonsillectomy, tubal ligation. HOME MEDICATIONS: Flovent, ondansetron, Norvasc, ProAir, Lexapro, Rocaltrol, Flexeril, Lasix, Protonix, hydralazine, Spiriva. ALLERGIES: TO TRAMADOL. SOCIAL HISTORY: No smoking, alcohol, or illicit drugs. FAMILY HISTORY: No history of kidney disease. REVIEW OF SYSTEMS: CONSTITUTIONAL: Negative for weight loss or gain, ability to conduct usual activities. SKIN: Negative for rash, itching. EYES: Negative for double vision, pain. ENT/MOUTH: Negative for nose bleeding, neck stiffness, pain, tenderness. CARDIOVASCULAR: Negative for palpitations, dyspnea on exertion, orthopnea. RESPIRATORY: Negative for shortness of breath, wheezing, cough, hemoptysis, fever or night sweats. GASTROINTESTINAL: Negative for poor appetite, abdominal pain, heartburn, nausea, vomiting, constipation, or diarrhea. GENITOURINARY: Negative for urgency, frequency, dysuria, nocturia. MUSCULOSKELETAL: Negative for pain, swelling. NEUROLOGIC/PSYCHIATRIC: Negative for anxiety, depression. ALLERGY/IMMUNOLOGIC: Negative for skin rash, bleeding tendency. PHYSICAL EXAMINATION: GENERAL: This is a well-built female, in no apparent distress. VITAL SIGNS: Temperature 98.3, pulse 74, respiratory rate 16, blood pressure 140/77. HEENT: Atraumatic, normocephalic. Oral mucosa is moist. NECK: Supple. CARDIOVASCULAR: S1, S2. Regular rate and rhythm. RESPIRATORY: Clear. GASTROINTESTINAL: Abdomen is soft. LABORATORY DATA: Hemoglobin is 9.9. Potassium 4.0. BUN is 40, creatinine is 3.4. ASSESSMENT AND PLAN: 1. Chronic kidney disease stage 5, stable. 2. Edema, controlled. 3. History of hypertension. 4. Anemia of chronic disease. 5. No acute indication for dialysis. Fistula is matured and ready to be used. We will monitor closely. Thank you for the consult. Job ID: [id number]
[2019-01-21] MEDS: Ipratropium Bromide 2.5 ml Neb NEB SCH ×4 (02:10→19:33)
[2019-01-21 04:53] LABS: #Basophils 0.1 thou/uL (0.0-0.2); #Lymphocytes 1.8 thou/uL (1.20-3.40); #Monocytes 0.5 thou/uL (0.11-0.59); #Neutrophils 3.3 thou/uL (1.40-6.50); %Basophils 1.2 % (0.0-1.0); %Eosinophils 0.4 % (0.0-10.0); %Lymphocytes 32.5 % (21.0-51.0); %Monocytes 8.5 % (0.0-10.0); %Neutrophils 57.4 % (42.0-75.0); Hemoglobin 8.9 g/dL (12.0-16.0); Mean Corpuscular HGB CONC 32.5 g/dL (32.0-36.0); Mean Corpuscular Hemoglobin 28.6 pg (27.0-31.0); Mean Corpuscular Volume 87.8 fL (78.0-98.0); Mean Platelet Volume 8.1 fL (7.4-10.4); Platelet Count 191 thou/uL (130-400); Red Blood Cell (RBC) Count 3.12 mill/uL (4.20-5.40); White Blood Cell (WBC) Count 5.7 thou/uL (4.8-10.8)
[2019-01-21 04:54] LABS: Reticulocyte Count 1.5 % (0.5-1.5)
[2019-01-21 05:10] LABS: Iron 24 ug/dL (50-170); Iron Binding Capacity, Total 230 mcg/dL (265-497)
[2019-01-21 05:11] LABS: Anion Gap 14 mmol/L (10-20); BUN (Urea Nitrogen) 45 mg/dL (9.8-20.1); Calc. Creatinine Clearance 13 mL/min (70-130); Calcium 8.7 mg/dL (7.8-10.44); Carbon Dioxide 20 mmol/L (23-31); Chloride 106 mmol/L (98-107); Estimated GFR-MDRD 13; Glucose 95 mg/dL (80-115); Iron 24 ug/dL (50-170); Iron Binding Capacity, Total 233 mcg/dL (265-497); Potassium 4.1 mmol/L (3.5-5.1); Sodium 136 mmol/L (136-145)
[2019-01-21] MEDS: Nicotine 14 MG PATCH TD SCH (08:21)
[2019-01-21] MEDS: Amlodipine 10 MG TAB PO SCH (08:24)
[2019-01-21] MEDS: Escitalopram Oxalate 10 mg Tablet PO SCH (08:24)
[2019-01-21] MEDS: hydrALAZINE 25 MG TAB PO SCH ×3 (08:24→20:12)
[2019-01-21] MEDS: Furosemide 40 MG TAB PO SCH (08:25)
[2019-01-21] MEDS: Calcitriol 0.25 MCG CAP PO SCH (08:25)
[2019-01-21] MEDS: Nebivolol HCl 5 MG TAB PO SCH (08:25)
[2019-01-21] MEDS: Ketorolac Tromethamine 30 MG/ML VIAL IVP PRN (08:26)
[2019-01-21] MEDS ORDERED: Ferrous Gluconate 324 MG TAB PO SCH (11:30)
--- NOTE | 2019-01-21 11:46 | PRG ---
DATE OF SERVICE: 01/21/2019 SUBJECTIVE: Patient was seen and examined at bedside and overnight events noted. Patient denies any shortness of breath or chest pain or palpitation. No history of nausea or vomiting or diarrhea or fever or chills or cramps. OBJECTIVE: GENERAL: This is a well-built female, in no apparent distress. VITAL SIGNS: Temperature 98.6. Heart rate 75. Respiratory rate 16. Blood pressure 164/77. HEENT: Atraumatic, normocephalic. Oral mucosa is moist NECK: Supple. CARDIOVASCULAR: S1, S2 heard. Rate and rhythm regular. RESPIRATORY: Clear to auscultation. GASTROINTESTINAL: Abdomen is soft. MUSCULOSKELETAL: No tenderness. No edema. DERMATOLOGIC: No skin rash. NEUROLOGIC: Alert and awake and oriented X3. No focal neurologic deficits. Moving all the extremities. PSYCHIATRIC: Mood and affect normal. LABORATORY DATA: Potassium 4.1, BUN is 45, and creatinine is . ASSESSMENT AND PLAN: 1. Acute kidney injury on chronic kidney disease stage 5, stable. 2. Edema, controlled. 3. History of hypertension. 4. Anemia. We will give one dose of Epogen. Continue on iron pills. The patient was advised to avoid splints above the fistula. Dialysis nurse will also check on her. We will follow. Job ID: [id number]
[2019-01-21] MEDS: Ondansetron PF 4 MG/2 ML Vial IVP PRN (11:53)
--- NOTE | 2019-01-21 13:55 | CT ---
EXAM: CT Upper Ext Rt WO Con PROVIDED CLINICAL HISTORY: Pain COMPARISON: None FINDINGS: There is an abnormal appearance to the scaphoid, suggesting sequela of prior scaphoid waist fracture. The proximal pole of the scaphoid appears diminutive and sclerotic. There is an osseous body noted at the dorsal aspect of the distal pole of the scaphoid interposed between the radial styloid and tra pezoid. There is radiocarpal joint space narrowing. There is chronic erosion and subcortical cystlike change involving the radial styloid. There is narrowing of the capitellum-scaphoid articulat ion with subcortical cyst formation seen within the capitate. They lunate appears mildly ulnarly subluxed. Radiocarpal joint effusion is noted. Joint spaces appear otherwise preserved. Alignment hunter ears otherwise anatomic. No evidence for an acute fracture. Surgical clips are seen at the radial aspect of the distal forearm. 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
[2019-01-21 15:35] VITALS: BMI 23.6
--- NOTE | 2019-01-21 15:58 | PRG ---
DATE OF SERVICE: 01/21/2019 SUBJECTIVE: The patient is seen and examined at the bedside. She complains about the right hand pain and swelling. OBJECTIVE: VITAL SIGNS: Blood pressure is 141/69, , respiratory rate is 16, temperature is 98.4, O2 saturation is 98% on room air. HEENT: Head is atraumatic and normocephalic. Eyes are PERRLA. Sclerae are nonicteric. Oral mucosa is moist. NECK: Supple. LUNGS: Clear. HEART: S1 and S2 are normal. No S3. No S4. ABDOMEN: Soft, nontender, nondistended. EXTREMITIES: NEUROLOGIC: She follows my commands. She moves all 4 extremities. LABORATORY DATA: Labs showed white count of 5.7, hemoglobin of 8.9, hematocrit of 27.4, platelet count is 191,000. Sodium of 136, potassium 4.1, chloride 106 CO2 of 20, BUN 45, creatinine 4.05. Iron 24, TIBC 230, ferritin 293.28, uric acid 9.8, and ESR Westergren is 66. IMAGING STUDIES: CT of the upper extremity personally reviewed by me showed scaphoid fracture malunion with developing SLAC at wrist. IMPRESSION: 1. Right wrist pain, which is related to a non-healed fracture of the scaphoid. Dr. Figueroa, hand surgeon, is consulted. A CT scan showed the fracture. She is getting 24-hour urine collection. For further diagnostic workup, we will check her vitamin D level. 2. Anemia. This is anemia of chronic disease with high ferritin level and low TIBC. This is most likely related to her kidney problem, which is chronic. 3. Hypertension. 4. Chronic obstructive pulmonary disease, stable. 5. Gastroesophageal reflux disease. 6. History of depression. PLAN: I will check her vitamin D level. Her ESR is elevated, uric acid is elevated. We will start her on allopurinol, small dose, 100 mg daily, and she should be able to go home tomorrow. Job ID: [id number]
--- NOTE | 2019-01-21 15:59 | PRG ---
DATE OF SERVICE: 01/21/2019 REASON FOR CONSULTATION: Anemia, possible GI bleed. SUBJECTIVE: The patient did well overnight with no acute events or problems. She states that she continues to have right wrist pain, but is currently controlled with her current pain regimen. She has not had a bowel movement since admission. In fact, she has not had a bowel movement for the last 3 to 4 days. Otherwise, she denies any nausea, vomiting, fevers, chills, abdominal pain, hematemesis, melena, or hematochezia. OBJECTIVE: VITAL SIGNS: Temperature 98.4, pulse 72, blood pressure 141/69, respiratory rate 16, saturating 98% on room air. GENERAL: The patient was lying in bed, in no acute distress. Alert and oriented x4. CARDIOVASCULAR: Regular rate and rhythm. RESPIRATORY: Clear to auscultation bilaterally. ABDOMEN: Normoactive bowel sounds. Soft, nontender, nondistended. EXTREMITIES: No cyanosis, clubbing, or edema. LABORATORY DATA: CBC with a white blood cell count of 5.7, hemoglobin 8.9, hematocrit 27.4, platelets 191. Chemistry with a sodium of 136, potassium 4.1, chloride 106, CO2 of 20, BUN 45, creatinine 4.05, glucose 95. Iron 24, TIBC 230, ferritin 293 with an iron saturation of 10%. IMAGING DATA: No current GI imaging is available for review. ASSESSMENT AND PLAN: The patient is a 63-year-old female with past medical history of hypertension, asthma, chronic obstructive pulmonary disease, chronic kidney disease, status post arteriovenous fistula placement approximately 1 month ago, chronic hepatitis C infection (no record of treatment), and stage IV leiomyosarcoma with pulmonary resection in June 2018 presenting with right wrist pain and anemia. Anemia: The patient is presenting with a mild to-modest anemia, which has been present chronically for some time and only slightly decreased when compared to baseline. She does not complain of any overt evidence of active gastrointestinal bleeding including no evidence of hematemesis, melena, or hematochezia. She states that her last colonoscopy was approximately 1 year ago with normal findings during that procedure. Per labs, the patient has a low iron, a low TIBC, but has a high ferritin, which is consistent with anemia of chronic disease/renal disease rather than chronic gastrointestinal blood loss or an iron deficiency anemia. At this time given the lack of overt gastrointestinal bleeding and labs consistent with anemia of chronic disease as well as a negative colonoscopy 1 year ago (fecal occult blood test is a colorectal cancer screening test) and the utilization of endoscopic management is not indicated. RECOMMENDATIONS: 1. We would continue to trend her H and H and transfuse as necessary to maintain an H and H of 7/. 2. Continue to monitor clinically for signs of active GI bleeding. 3. Pain control per primary team. 4. Endoscopic evaluation is not indicated at this time given her anemia of chronic disease/renal disease. 5. Despite having a low iron on labs, her iron stores are normal, so I would be careful in terms of supplementation with iron at this time given the fact that this is not an iron deficiency anemia. 6. We would place the patient on a bowel regimen given that she has not had a bowel movement that she has been here in inpatient as well as if she is going to get iron supplementation, which could be very constipating. We will sign off at this time. Please call with any questions. Job ID: [id number]
[2019-01-21] MEDS ORDERED: Allopurinol 100 MG TAB PO SCH (16:00)
[2019-01-21] MEDS: Mometasone Furoate 30 PUFF 220 MCG INH SCH (19:34)
[2019-01-22] MEDS: Ipratropium Bromide 2.5 ml Neb NEB SCH ×4 (00:34→18:46)
[2019-01-22 06:09] LABS: #Basophils 0.1 thou/uL (0.0-0.2); #Lymphocytes 1.8 thou/uL (1.20-3.40); #Monocytes 0.5 thou/uL (0.11-0.59); #Neutrophils 2.6 thou/uL (1.40-6.50); %Basophils 1.7 % (0.0-1.0); %Eosinophils 0.8 % (0.0-10.0); %Lymphocytes 36.1 % (21.0-51.0); %Monocytes 9.4 % (0.0-10.0); %Neutrophils 52.1 % (42.0-75.0); Hemoglobin 8.9 g/dL (12.0-16.0); Mean Corpuscular HGB CONC 32.5 g/dL (32.0-36.0); Mean Corpuscular Hemoglobin 28.6 pg (27.0-31.0); Mean Platelet Volume 8.2 fL (7.4-10.4); Platelet Count 218 thou/uL (130-400); RBC Distribution Width 14.9 % (11.5-14.5); Red Blood Cell (RBC) Count 3.13 mill/uL (4.20-5.40); White Blood Cell (WBC) Count 4.9 thou/uL (4.8-10.8)
[2019-01-22 06:36] LABS: Anion Gap 13 mmol/L (10-20); BUN (Urea Nitrogen) 45 mg/dL (9.8-20.1); Calc. Creatinine Clearance 13 mL/min (70-130); Calcium 8.8 mg/dL (7.8-10.44); Carbon Dioxide 20 mmol/L (23-31); Chloride 103 mmol/L (98-107); Estimated GFR-MDRD 12; Glucose 118 mg/dL (80-115); Potassium 3.9 mmol/L (3.5-5.1); Sodium 132 mmol/L (136-145)
[2019-01-22] MEDS: hydrALAZINE 25 MG TAB PO SCH ×3 (08:20→21:51)
[2019-01-22] MEDS: Ferrous Gluconate 324 MG TAB PO SCH (08:20)
[2019-01-22] MEDS: Nebivolol HCl 5 MG TAB PO SCH (08:21)
[2019-01-22] MEDS: Calcitriol 0.25 MCG CAP PO SCH (08:21)
[2019-01-22] MEDS: Allopurinol 100 MG TAB PO SCH (08:21)
[2019-01-22] MEDS: Furosemide 40 MG TAB PO SCH (08:21)
[2019-01-22] MEDS: Amlodipine 10 MG TAB PO SCH (08:21)
[2019-01-22] MEDS: Ketorolac Tromethamine 30 MG/ML VIAL IVP PRN (08:22)
[2019-01-22] MEDS: Polyethylene Glycol 3350 17 GM Packet PO SCH (08:22)
[2019-01-22] MEDS: Escitalopram Oxalate 10 mg Tablet PO SCH (08:22)
[2019-01-22] MEDS: Nicotine 14 MG PATCH TD SCH (08:30)
--- NOTE | 2019-01-22 15:51 | PRG ---
DATE OF SERVICE: 01/22/2019 SUBJECTIVE: Patient was seen and examined at bedside and overnight events noted. Patient denies any shortness of breath or chest pain or palpitation. No history of nausea or vomiting or diarrhea or fever or chills or cramps. OBJECTIVE: GENERAL: This is a well-built female, in no apparent distress. VITAL SIGNS: Temperature 97, pulse 67, respiratory rate 16, and blood pressure 121/72. HEENT: Atraumatic and normocephalic. Oral mucosa is moist NECK: Supple. CARDIOVASCULAR: S1, S2 heard. Rate and rhythm regular. RESPIRATORY: Clear to auscultation. GASTROINTESTINAL: Abdomen is soft. MUSCULOSKELETAL: No tenderness. No edema. DERMATOLOGIC: No skin rash. NEUROLOGIC: Alert and awake and oriented X3. No focal neurologic deficits. Moving all the extremities. PSYCHIATRIC: Mood and affect normal. LABORATORY DATA: Potassium 3.9, BUN is 45, and creatinine is 4.2. ASSESSMENT AND PLAN: 1. Acute kidney injury on chronic kidney, stage 5. Slight worsening labs. No acute indication for dialysis. 2. Edema, controlled. 3. History of hypertension. 4. Anemia. We will give a dose of Epogen. 5. Labs stable. No acute indication for dialysis. Job ID: [id number]
--- NOTE | 2019-01-22 17:13 | PRG ---
DATE OF SERVICE: 01/22/2019 SUBJECTIVE: The patient is seen and examined at the bedside. Her right hand pain has improved, the swelling has improved too. She had ice packs. OBJECTIVE: VITAL SIGNS: Blood pressure is 121/72, pulse is 69, temperature is 98.7, respirations 16, O2 saturation is 99% on room air. HEENT: Her head is atraumatic and normocephalic. Eyes are PERRLA. Sclerae are nonicteric. Oral mucosa is moist. NECK: Supple. LUNGS: Clear. HEART: S1 and S2 normal. ABDOMEN: Soft, nontender. Bowel sounds present. No organomegaly. EXTREMITIES: Right hand is mildly swollen and tender to touch in the wrist area. NEUROLOGICAL: She is alert and oriented x4. There is no any motor or sensory deficits. Cranial nerves are intact. LABORATORY DATA: Labs showed white count of 4.9, hemoglobin 8.9, hematocrit 27.5, and platelet count is 218,000. Sodium of 132, potassium 3.9, chloride 103, CO2 of 20, BUN 45, creatinine 4.33, glucose 118, uric acid 9.8, and calcium 8.8. IMPRESSION: 1. Right wrist pain which is most likely related to nonhealing fracture of the scaphoid bone and Dr. Figueroa is on the case and he is collecting 24-hour urine for further diagnostic workup. Vitamin D level is sent out, so results are still pending. Her swelling and pain have significantly improved, but we are still waiting to complete her 24-hour urine collection. 2. Anemia of chronic disease. 3. Hypertension. 4. Chronic obstructive pulmonary disease, stable. 5. Gastroesophageal reflux disease. 6. History of depression. She was started on allopurinol, because her uric acid is elevated. The vitamin D is sent out test. She does not have any evidence of synovitis, which would explain her elevated sedimentation rate, but will do the lupus panel, may be this is going to help us understand why her kidney function is getting worse and she is not healing well. Job ID: [id number]
[2019-01-22 18:02] LABS: Urine Total Volume 600 mL (250-2400)
[2019-01-22] MEDS: Mometasone Furoate 30 PUFF 220 MCG INH SCH (18:46)
[2019-01-22 19:52] LABS: Uric Acid-Urine 16.6 mg/dL
[2019-01-23] MEDS: Ipratropium Bromide 2.5 ml Neb NEB SCH (00:48)
[2019-01-23] MEDS: Ondansetron PF 4 MG/2 ML Vial IVP PRN (05:01)
[2019-01-23 05:06] LABS: #Eosinphils 0.1 thou/uL (0.0-0.7); #Lymphocytes 1.8 thou/uL (1.20-3.40); #Monocytes 0.6 thou/uL (0.11-0.59); #Neutrophils 2.5 thou/uL (1.40-6.50); %Basophils 0.6 % (0.0-1.0); %Eosinophils 1.2 % (0.0-10.0); %Lymphocytes 36.2 % (21.0-51.0); %Monocytes 11.4 % (0.0-10.0); %Neutrophils 50.7 % (42.0-75.0); Hemoglobin 9.7 g/dL (12.0-16.0); Mean Corpuscular HGB CONC 33.4 g/dL (32.0-36.0); Mean Corpuscular Hemoglobin 29.1 pg (27.0-31.0); Mean Corpuscular Volume 87.1 fL (78.0-98.0); Mean Platelet Volume 7.7 fL (7.4-10.4); Platelet Count 228 thou/uL (130-400); RBC Distribution Width 14.5 % (11.5-14.5); Red Blood Cell (RBC) Count 3.35 mill/uL (4.20-5.40); White Blood Cell (WBC) Count 4.9 thou/uL (4.8-10.8)
[2019-01-23] MEDS: Ketorolac Tromethamine 30 MG/ML VIAL IVP PRN (05:06)
[2019-01-23 05:43] LABS: Anion Gap 12 mmol/L (10-20); BUN (Urea Nitrogen) 51 mg/dL (9.8-20.1); Calc. Creatinine Clearance 12 mL/min (70-130); Calcium 9.3 mg/dL (7.8-10.44); Carbon Dioxide 23 mmol/L (23-31); Chloride 105 mmol/L (98-107); Estimated GFR-MDRD 12; Glucose 101 mg/dL (80-115); Potassium 4.2 mmol/L (3.5-5.1); Sodium 136 mmol/L (136-145)
[2019-01-23] MEDS: Ferrous Gluconate 324 MG TAB PO SCH (08:23)
[2019-01-23] MEDS: Polyethylene Glycol 3350 17 GM Packet PO SCH ×2 (08:23→08:26)
[2019-01-23] MEDS: hydrALAZINE 25 MG TAB PO SCH ×2 (08:23→14:34)
[2019-01-23] MEDS: Nebivolol HCl 5 MG TAB PO SCH (08:24)
[2019-01-23] MEDS: Amlodipine 10 MG TAB PO SCH (08:24)
[2019-01-23] MEDS: Furosemide 40 MG TAB PO SCH (08:24)
[2019-01-23] MEDS: Escitalopram Oxalate 10 mg Tablet PO SCH (08:24)
[2019-01-23] MEDS: Allopurinol 100 MG TAB PO SCH (08:25)
[2019-01-23] MEDS: Nicotine 14 MG PATCH TD SCH (08:25)
[2019-01-23] MEDS: Calcitriol 0.25 MCG CAP PO SCH (08:25)
[2019-01-23] MEDS ORDERED: Ipratropium Bromide 2.5 ml Neb NEB SCH (13:00)
--- NOTE | 2019-01-23 14:30 | PRG ---
DATE OF SERVICE: 01/23/2019 SUBJECTIVE: Patient was seen and examined at bedside and overnight events noted. Patient denies any shortness of breath or chest pain or palpitation. No history of nausea or vomiting or diarrhea or fever or chills or cramps. OBJECTIVE: GENERAL: This is a well-built female, in no apparent distress. VITAL SIGNS: Temperature 97.8. Heart rate 60. Respiratory rate . Blood pressure 150/70. HEENT: Atraumatic, normocephalic. Oral mucosa is moist NECK: Supple. CARDIOVASCULAR: S1, S2 heard. Rate and rhythm regular. RESPIRATORY: Clear to auscultation. GASTROINTESTINAL: Abdomen is soft. MUSCULOSKELETAL: No tenderness. No edema. DERMATOLOGIC: No skin rash. NEUROLOGIC: Alert and awake and oriented X3. No focal neurologic deficits. Moving all the extremities. PSYCHIATRIC: Mood and affect normal. LABORATORY DATA: Potassium is 4.2, BUN is 51, and creatinine is 4.4. ASSESSMENT AND PLAN: 1. Acute kidney injury on chronic kidney disease, stage 4, stable. Fistula is functioning well. No acute indication for dialysis. 2. Edema, controlled. 3. History of hypertension. 4. Anemia. Continue Epogen. 5. Avoid nephrotoxins. We will follow. Job ID: [id number]
[2019-01-23 15:22] VITALS: BP 136/67; TEMP 98.4
--- NOTE | 2019-01-23 18:25 | DIS ---
DATE OF ADMISSION: 01/20/2019 DATE OF DISCHARGE: 01/23/2019 FINAL DIAGNOSES: 1. Right wrist pain, which is most likely related to nonhealing fracture of the scaphoid bone. 2. Anemia of chronic disease. 3. Hypertension. 4. Hyperuricemia. 5. Chronic obstructive pulmonary disease. 6. Gastroesophageal reflux disease. 7. History of depression. CONSULTANTS: 1. Dr. Langford, Nephrology Service. 2. Dr. Casey, Gastrointestinal Service. 3. Dr. Figueroa, hand surgeon. HOSPITAL COURSE: The patient is a 63-year-old female, who denied any trauma, but for a couple of days prior to this hospitalization, she developed pain in her right wrist and swelling. The pain was rated at 10/10, radiating up to her arm. It was accompanied by nausea and vomiting. She denied any hematemesis. She denied any blood in the stool. She denied any black stools. In the emergency room at [facility], she was found to have hemoglobin of 6.1. She denied any fever or chills, and repeated hemoglobin level was found to be 9.9 at this facility. The patient got evaluated in the emergency room at [facility] in [place], found to have blood urea nitrogen of 42, elevated creatinine at 3.67. Normal sodium, normal potassium, unremarkable LFTs, decreased CO2 to 17, and normal white count, hemoglobin at 6.1, normal platelets and she was positive for fecal occult blood test. 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 There were no acute osseous findings, so she got admitted to the hospital. Ice packs were used to decrease the swelling and pain of the right wrist. As I stated above, her hemoglobin level was 9.9, and she was positive for her occult blood in her stool. GI specialist was consulted, and the patient was seen by Dr. Casey, who recommended observation and close followup on her hemoglobin levels. Also, Nephrology Service was consulted since her kidney function was getting worse with observation in this hospital. Dr. Langford did not recommend any dialysis at this time. 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 Figueroa, was consulted. The patient had 24-hour urine collection done, which showed volume of 600, uric acid was 16.6, uric acid in 24 hours 100 and urine calcium was TNP. Since her creatinine was up to 4.3, it was followed closely by Dr. Langford, and apparently, she had fistula done on her right arm a month ago. Fistula is maturing properly. The patient had iron studies done, which showed iron of 24, TIBC of 230, and ferritin 293.28, which was suggestive of chronic anemia secondary to renal failure most likely. Also, her uric acid came back elevated at 9.8, and her sed rate came back elevated at 66, so lupus panel and rheumatoid arthritis panels were sent out and the patient improved clinically. She does not have much pain anymore. Some discomfort in the right wrist. Dr. Figueroa would like to see her in his office on outpatient basis, so appointment he recommended is at 1 o'clock. The patient is doing well. Her blood pressure is 136/67, pulse is 71, temperature is 98.4, respirations 20, and O2 saturation is 97% on room air. She is seen and examined before she is discharged. DISCHARGE MEDICATIONS: Her medications at the time of discharge; 1. Allopurinol 100 mg once a day. 2. Albuterol, which is ProAir RespiClick, two inhalations every 6 hours p.r.n. as needed. 3. Amlodipine 10 mg daily. 4. Calcitriol 0.5 mcg daily. 5. Cyclobenzaprine 10 mg 3 times a day. 6. Lexapro 5 mg daily. 7. Fluticasone propionate 50 mcg inhalations daily. 8. Furosemide 40 mg daily. 9. Hydralazine 50 mg 3 times a day. 10. DuoNebs inhalations p.r.n. as needed q.4 hours. 11. Nebivolol, which is Bystolic 10 mg once a day. 12. Pantoprazole 40 mg once a day. 13. Spiriva 18 mcg one capsule daily. 14. Zofran 8 mg twice a day p.r.n. as needed. The patient is doing well. DISPOSITION: Home. DIET: She will stay on renal diet. ACTIVITIES: Somewhat limited because of the current pain and swelling of the right wrist and fracture of the scaphoid bone, which is not healing. DISCHARGE INSTRUCTIONS: She is going to wear her splint, and she will follow up with primary care physician in the next week or two. TIME SPENT: Time spent on this dictation is less than 30 minutes. Job ID: [id number]
[2019-01-26 17:20] LABS: ANA Symphony (Qualitative) Negative (Negative); ANA Symphony (Quantitative) 0.3 Ratio (< 0.7 Negative); CCP IgG Antibody 0.8 EliAU/mL (<7 Negative); EliA RAS New Method **** NEW METHOD ****; EliA Thy New Method **** NEW METHOD ****; EliA Vaculitis New Method **** NEW METHOD ****; Mitochondrial Ab 1.4 U/mL (<4 Negative); Thyroid Peroxidase IgG Ab Less than 4.0 IU/mL (<25 Normal); dsDNA IgG Antibody 1.1 IU/mL (<10 Negative)
== END 2019-01-23 17:07 | disposition home or self-care (01) ==
LOC: ERS 00:23 → 2SW 01:29
PROVIDERS: ADMIT Hospitalist; ATTEND Hospitalist
DX: M25.531 Pain in right wrist (principal); S62.001P Unspecified fracture of navicular [scaphoid] bone of right wrist, subsequent encounter for fracture with malunion; D64.9 Anemia, unspecified; I12.0 Hypertensive chronic kidney disease with stage 5 chronic kidney disease or end stage renal disease; N18.5 Chronic kidney disease, stage 5; N17.9 Acute kidney failure, unspecified; J44.9 Chronic obstructive pulmonary disease, unspecified; F17.210 Nicotine dependence, cigarettes, uncomplicated; F32.9 Major depressive disorder, single episode, unspecified; K21.9 Gastro-esophageal reflux disease without esophagitis; B18.2 Chronic viral hepatitis C; Z79.899 Other long term (current) drug therapy; Z88.5 Allergy status to narcotic agent
CPT/HCPCS: 73200; 76881; 80048 ×4; 81050; 82306; 82340; 82728; 83516; 83540; 83550; 83605; 84550; 84560; 85018; 85025 ×4; 85046; 85652; 86038; 86160; 86200; 86225; 86376; 86850; 86900; 86901; 94640 ×6; 94664; 96374; 96375 ×2; 96376 ×4; 97110; 97116; 97139 ×2; 99285; G0378 ×5; 36415; J1885; J2270; J2405

== ENCOUNTER 2019-04-01 07:46 | Emergency (ER) | payer MEDICARE, MEDICAID ==
[2019-04-01 08:43] LABS: Hemoglobin 9.2 g/dL (12.0-16.0); Mean Corpuscular HGB CONC 31.9 g/dL (32.0-36.0); Mean Corpuscular Hemoglobin 28.7 pg (27.0-31.0); Mean Platelet Volume 8.5 fL (7.4-10.4); Platelet Count 273 thou/uL (130-400); RBC Distribution Width 15.7 % (11.5-14.5); Red Blood Cell (RBC) Count 3.19 mill/uL (4.20-5.40)
[2019-04-01 08:50] LABS: ALT (SGPT) 9 U/L (8-55); AST (SGOT) 15 U/L (5-34); Albumin 3.9 g/dL (3.4-4.8); Alkaline Phosphatase 51 U/L (40-110); Anion Gap 13 mmol/L (10-20); BUN (Urea Nitrogen) 32 mg/dL (9.8-20.1); Bilirubin, Total 0.3 mg/dL (0.2-1.2); Calc. Creatinine Clearance 0 mL/min (70-130); Calcium 9.6 mg/dL (7.8-10.44); Carbon Dioxide 25 mmol/L (23-31); Chloride 105 mmol/L (98-107); Estimated GFR-MDRD 12; Globulin 3.8 g/dL (2.4-3.5); Glucose 64 mg/dL (80-115); Potassium 3.7 mmol/L (3.5-5.1); Protein, Total 7.7 g/dL (6.0-8.3); Sodium 139 mmol/L (136-145)
[2019-04-01 09:01] LABS: Eosinophils 2 % (0-10); Hypochromia SLIGHT = 6-15 cells (100X) (0-5/hpf); Lymphocytes 34 % (21-51); MDiff Complete? YES; Monocytes 12 % (0-10); Neutrophil 52 % (42-75); Platelet Morphology Comment Appears Adequate; White Blood Cell (WBC) Count 4.6 thou/uL (4.8-10.8)
== END 2019-04-01 12:45 | disposition home or self-care (01) ==
LOC: ERS 07:46
DX: T82.898A Other specified complication of vascular prosthetic devices, implants and grafts, initial encounter (principal); I10 Essential (primary) hypertension; J44.9 Chronic obstructive pulmonary disease, unspecified; F17.210 Nicotine dependence, cigarettes, uncomplicated; Z79.899 Other long term (current) drug therapy; Z79.51 Long term (current) use of inhaled steroids; Z79.82 Long term (current) use of aspirin
CPT/HCPCS: 36415; 80053; 85025; 99284

== ENCOUNTER 2019-04-25 12:24 | Emergency (ER) | payer MEDICARE, MEDICAID ==
[2019-04-25 13:40] LABS: #Eosinphils 0.1 thou/uL (0.0-0.7); #Lymphocytes 1.3 thou/uL (1.20-3.40); #Monocytes 0.4 thou/uL (0.11-0.59); #Neutrophils 4.3 thou/uL (1.40-6.50); %Basophils 0.4 % (0.0-1.0); %Lymphocytes 21.5 % (21.0-51.0); %Monocytes 6.6 % (0.0-10.0); %Neutrophils 70.4 % (42.0-75.0); Mean Corpuscular HGB CONC 31.4 g/dL (32.0-36.0); Mean Corpuscular Hemoglobin 27.7 pg (27.0-31.0); Mean Corpuscular Volume 88.3 fL (78.0-98.0); Platelet Count 256 thou/uL (130-400); RBC Distribution Width 17.6 % (11.5-14.5); Red Blood Cell (RBC) Count 3.23 mill/uL (4.20-5.40); White Blood Cell (WBC) Count 6.1 thou/uL (4.8-10.8)
[2019-04-25 13:47] LABS: ALT (SGPT) Less than 7 U/L (8-55); AST (SGOT) 14 U/L (5-34); Albumin 3.9 g/dL (3.4-4.8); Alkaline Phosphatase 57 U/L (40-110); Anion Gap 14 mmol/L (10-20); BUN (Urea Nitrogen) 40 mg/dL (9.8-20.1); Bilirubin, Total 0.5 mg/dL (0.2-1.2); Calc. Creatinine Clearance 0 mL/min (70-130); Calcium 9.4 mg/dL (7.8-10.44); Carbon Dioxide 27 mmol/L (23-31); Chloride 105 mmol/L (98-107); Estimated GFR-MDRD 13; Globulin 3.7 g/dL (2.4-3.5); Glucose 88 mg/dL (80-115); Potassium 3.7 mmol/L (3.5-5.1); Protein, Total 7.6 g/dL (6.0-8.3); Sodium 142 mmol/L (136-145)
--- NOTE | 2019-04-25 13:54 | ULT ---
RIGHT UPPER EXTREMITY VENOUS DUPLEX EXAM: Date: 04/25/19 HISTORY: Right arm pain. Evaluation of dialysis shunt. FINDINGS: Real-time imaging of the area of the fistula shows that the fistula appears to be a fistula from the brachial artery to cephalic vein. I do not see flow within the fistula and there is thrombus within t he cephalic vein. The remainder of the deep venous system to include the internal jugular, subclavian , axillary, and brachial veins appear patent. IMPRESSION: Evidence of outflow occlusion of the dialysis shunt, which appears to be from the brachial to cephali c vein with occlusive thrombus within the cephalic vein. POS: LIN
== END 2019-04-25 19:07 | disposition home or self-care (01) ==
LOC: ERS 12:24
DX: T82.591A Other mechanical complication of surgically created arteriovenous shunt, initial encounter (principal); J44.9 Chronic obstructive pulmonary disease, unspecified; I10 Essential (primary) hypertension; F17.210 Nicotine dependence, cigarettes, uncomplicated
CPT/HCPCS: 36415; 80053; 85025

== ENCOUNTER 2019-05-12 14:31 | Outpatient (CLI) | payer MEDICARE, MEDICAID ==
--- NOTE | 2019-05-12 16:12 | ULT ---
PREDIALYSIS ACCESS DUPLEX EXAMINATION 05/12/19 INDICATION: New dialysis access; current fistula in the right upper extremity (cephalic brachial fistula) is occl uded since April 2019 TECHNIQUE: Grayscale, color Doppler spectral Doppler images were obtained. RIGHT UPPER EXTREMITY The right cephalic brachial arterial venous graft is occluded. The proximal right cephalic vein measu red 4.3 mm. BRACHIAL ARTERY: 5.5 mm RADIAL ARTERY: 2.6 mm ULNAR ARTERY: 2 mm BASILIC VEIN Shoulder: 2.1 mm Proximal Arm: 2.2 mm Mid Arm: 2.5 mm Elbow: 2.3 mm Proximal Forearm: 0.7 mm Mid Forearm: 0.7 mm Wrist: 0.9 mm LEFT UPPER EXTREMITY BRACHIAL ARTERY: 4.6 mm RADIAL ARTERY: 2.5 mm ULNAR ARTERY: 2 mm CEPHALIC VEIN Shoulder: 1.2 mm Upper Arm: 1.4 mm Mid Arm: 1.2 mm Elbow: 1.4 mm Proximal Forearm: 1.7 mm Mid Forearm: 1.5 mm Wrist: 2.3 mm BASILIC VEIN Shoulder: 1.5 mm Proximal Arm: 1.5 mm Mid Arm: 1.8 mm Elbow: 1.5 mm Proximal Forearm: 0.7 mm Mid Forearm: 0.6 mm Wrist: 0.7 mm IMPRESSION: Occluded right upper extremity cephalic brachial AV fistula graft. Predialysis access duplex measurem ents as above. Transcribed Date/Time: 05/12/2019 6:13 PM
== END 2019-05-12 14:32 | disposition home or self-care (01) ==
LOC: ULT 14:31
PROVIDERS: ATTEND Surgery
DX: Z01.818 Encounter for other preprocedural examination (principal); N18.6 End stage renal disease; T82.590A Other mechanical complication of surgically created arteriovenous fistula, initial encounter
CPT/HCPCS: 93970; G0365

== ENCOUNTER 2019-05-13 07:25 | Observation (INO) | payer MEDICARE, MEDICAID ==
[2019-05-13 08:16] LABS: #Eosinphils 0.1 thou/uL (0.0-0.7); #Lymphocytes 1.4 thou/uL (1.20-3.40); #Monocytes 0.4 thou/uL (0.11-0.59); #Neutrophils 2.4 thou/uL (1.40-6.50); %Basophils 0.3 % (0.0-1.0); %Eosinophils 1.5 % (0.0-10.0); %Monocytes 10.4 % (0.0-10.0); %Neutrophils 55.8 % (42.0-75.0); Hemoglobin 9.9 g/dL (12.0-16.0); Mean Corpuscular HGB CONC 32.3 g/dL (32.0-36.0); Mean Corpuscular Hemoglobin 28.8 pg (27.0-31.0); Mean Corpuscular Volume 89.1 fL (78.0-98.0); Mean Platelet Volume 8.4 fL (7.4-10.4); Platelet Count 189 thou/uL (130-400); RBC Distribution Width 17.3 % (11.5-14.5); Red Blood Cell (RBC) Count 3.43 mill/uL (4.20-5.40); White Blood Cell (WBC) Count 4.2 thou/uL (4.8-10.8)
[2019-05-13 08:36] LABS: Anion Gap 12 mmol/L (10-20); BUN (Urea Nitrogen) 41 mg/dL (9.8-20.1); Calc. Creatinine Clearance 0 mL/min (70-130); Calcium 9.2 mg/dL (7.8-10.44); Carbon Dioxide 25 mmol/L (23-31); Chloride 108 mmol/L (98-107); Estimated GFR-MDRD 12; Glucose 79 mg/dL (80-115); Potassium 5.7 mmol/L (3.5-5.1); Sodium 139 mmol/L (136-145)
[2019-05-13] MEDS ORDERED: Fentanyl 100 MCG/2 ML VIAL ONE ×2 (08:47→09:09)
[2019-05-13] MEDS ORDERED: Midazolam HCl 2 mg/2 ml Vial ONE (09:09)
[2019-05-13] MEDS ORDERED: Lidocaine 2% PF 5 ML VIAL ONE (09:09)
[2019-05-13] MEDS ORDERED: Heparin 5,000 UNITS/ML VIAL ONE (09:09)
[2019-05-13] MEDS ORDERED: Ioversol 68 % 50 ML VIAL ONE (09:09)
[2019-05-13] MEDS ORDERED: Lidocaine 1% w/Epinephrine 1:100K 20 ML VIAL ONE (09:09)
[2019-05-13] MEDS ORDERED: Sodium Chloride 0.9% 10 ML ONE (09:09)
[2019-05-13] MEDS ORDERED: Protamine Sulfate 50 MG/5 ML VIAL ONE (09:09)
[2019-05-13] MEDS ORDERED: Bupivacaine 0.25% HCL 30 ML VIAL ONE (09:09)
[2019-05-13] MEDS ORDERED: Propofol 500 MG/50 ML VIAL ONE (09:13)
[2019-05-13] MEDS ORDERED: Ondansetron PF 4 MG/2 ML Vial ONE (09:17)
[2019-05-13] MEDS ORDERED: Ketamine 50 MG/ML (10ML VIAL) ONE (09:35)
[2019-05-13] MEDS ORDERED: Heparin 10,000 UNITS/1 ML VIAL ONE (09:57)
[2019-05-13] MEDS ORDERED: Ondansetron PF 4 MG/2 ML Vial IVP PRN (10:26)
[2019-05-13] MEDS ORDERED: Guaifenesin DM 100-10/5 ML UDCUP PO PRN (10:26)
[2019-05-13] MEDS ORDERED: Bisacodyl 10 MG SUPP PR PRN (10:26)
[2019-05-13] MEDS ORDERED: Senokot S 8.6-50 MG TAB PO PRN (10:26)
[2019-05-13] MEDS ORDERED: Non-Formulary Item 1 EACH (Ipratropium/Albuterol Sulfate 3 ML) INH PRN (10:26)
[2019-05-13] MEDS ORDERED: Acetaminophen 325 MG TAB PO PRN (10:26)
[2019-05-13] MEDS ORDERED: PROVENTIL INHALER 6.7 G (200 INHALATIONS) INH PRN (11:15)
[2019-05-13] MEDS ORDERED: Promethazine HCl 25 MG/ML VIAL IM PRN (12:06)
[2019-05-13] MEDS ORDERED: Promethazine HCl 25 MG/ML VIAL SLOW IVP PRN (12:06)
[2019-05-13] MEDS ORDERED: Ondansetron HCl/PF 4 MG/2 ML Vial IVP PRN (12:06)
--- NOTE | 2019-05-13 13:08 | RAD ---
XR Chest 1 View Portable History: Dialysis catheter placement Comparison: Radiograph February 2019 Calcified catheter tip projects over the inferior SVC. Scarring of the right minor and major fissure. Findings: Minimal volume overload. Vascular stent over the right upper extremity. Impression: Chronic findings. No acute intrathoracic abnormality.
[2019-05-13] MEDS: Ipratropium Bromide 2.5 ml Neb NEB SCH ×3 (13:28→23:03)
[2019-05-13] MEDS ORDERED: Bupivacaine HCl 0.5%/Epinephrine 1:200,000/PF 30 ml Vial ONE (13:57)
[2019-05-13] MEDS: hydrALAZINE 25 MG TAB PO SCH ×2 (14:03→21:01)
--- NOTE | 2019-05-13 14:14 | PDOC.OP ---
Operative Note - Operative Note Operative Note: DATE OF PROCEDURE: 05/13/2019 PROCEDURE: Placement of right internal jugular tunneled hemodialysis catheter with ultrasound and fluoroscopic guidance, right brachiobasilic AV fistula. SURGEON: Theo Murillo M.D. PREOPERATIVE DIAGNOSIS: End stage renal failure. POSTOPERATIVE DIAGNOSIS: End-stage renal failure. HISTORY: Patient with end-stage renal failure and thrombosed right upper arm brachiocephalic AV fistula. She has had multiple thrombectomies and stent placements and the fistula is not felt to be salvageable. Recommendation was made to proceed with a right upper arm brachiobasilic fistula based on vein mapping. A tunneled hemodialysis catheter for immediate access for dialysis is also necessary. PROCEDURE: After informed consent was obtained and appropriate preoperative antibiotics were administered, the patient was taken to the Operating Room, placed in the supine position and monitored anesthesia care was administered. The neck and chest were prepped and draped in a standard sterile fashion and the patient placed in Trendelenburg position. A sterile ultrasound probe was used to identify the patent compressible right IJ vein which was accessed under direct ultrasound guidance. A wire was threaded through the needle and confirmed by ultrasound to be within the patent compressible vessel with the tip in the vena cava by fluoroscopy. Local anesthesia was infused to the skin and subcutaneous tissues of the right neck and chest. An infraclavicular incision was made and a catheter tunneled from the infraclavicular to the right IJ access site. The right IJ was sequentially dilated over the wire following which a dilator and sheath were placed over the wire and the dilator and wire removed leaving the sheath in place. The catheter was tunneled through the sheath which was then split and removed leaving the catheter in place. This was confirmed by fluoroscopy to be in good position in the superior vena cava with no kinking of the course of the catheter. Both ports easily aspirated dark venous nonpulsatile blood and easily flushed without resistance. Heparin was instilled to the quantity specified on the hub, and the hub was secured to the skin with 3-0 nylon sutures. The skin incision at the neck was closed in two layers with 4-0 Monocryl suture and Dermabond dressings were placed. The skin at the exit site was snugged up around the catheter with 4-0 Monocryl suture and Dermabond was placed there as well. Once the Dermabond was dry, a chlorhexidine impregnated occlusive dressing was placed at the exit site. Attention was then turned to placement of the right AV fistula.. A preoperative block had been administered and adequacy of block was confirmed. The palpable antecubital vein was marked on the skin as was the palpable brachial pulse. An incision was made between these 2 structures at the site of the previous antecubital incision, and dissection carried down to the antecubital vein complex. The basilic vein was much smaller than preoperative vein mapping had suggested at this level. A sterile ultrasound probe was obtained and the arm carefully examined. There were no suitable veins in proximity to the antecubital fossa but the patient did have a large branch of the basilic vein coursing toward the elbow. This was several centimeters medial to the brachial artery but was long enough and large enough that it was felt that it could be mobilized and tunneled up to the brachial artery. An incision was made over the basilic vein which was mobilized circumferentially. This was felt to be of adequate caliber and quality to support an AV fistula. The vein was marked for orientation, ligated distally and divided. The vein was interrogated with cardiac dilators and easily accepted up to a 4.5 mm dilator. The vein was flushed with heparinized saline and clamped. A counterincision was then made over the brachial artery and the vein was tunneled to this counterincision taking care to maintain correct orientation. Heparin was administered systemically and allowed to circulate for 3 minutes. After the heparin had circulated for 3 minutes, the brachial artery was clamped proximally and distally. An anterior arteriotomy was created with an 11 blade and extended with Ontiveros scissors. The vein was spatulated and an end-to-side anastomosis was created with excellent technical result. Prior to tying down the anastomosis, the arterial inflow was released flushing the anastomosis. The anastomosis was then secured and hemostasis was verified. Flow was established first through the fistula following which flow was restored through the artery. The patient had a palpable thrill in the basilic outflow as well as a good Doppler signal in the same distribution. The wound was irrigated and examined for hemostasis was again confirmed to be excellent. The subcutaneous tissues were reapproximated with a running 3-0 Monocryl sutures and the skin was closed with running 4-0 subcuticular Monocryl suture. There was some oozing however from the incision over the basilic vein, so protamine was administered and direct pressure was held. Following this there was no evidence of bleeding. Dermabond dressings were placed, and once this was dry an Otilio wrap was placed. Prior to leaving the operating room the fistula was again examined by Doppler and a good bruit confirmed. The patient was then taken to recovery in good condition. Estimated blood loss was minimal. There were no complications. There were no specimens.
--- NOTE | 2019-05-13 16:07 | HP ---
REASON FOR ADMISSION: Volume overload, hyperkalemia. HISTORY OF PRESENTING ILLNESS: The patient initially was scheduled for a new AV fistula and placement of new access for hemodialysis by Dr. Murillo this morning. Routine lab done this morning showed potassium to be 5.7, and the patient's systolic blood pressures were more than 200. The patient was short of breath as well. Has no complaints of palpitations, PND, or orthopnea. The patient states she her last dialysis was on Thursday. The patient says that her access got clogged up after dialysis on Thursday. She has been in touch with Dr. Langford and Dr. Murillo. Has no complaints of cough or fever. She ambulates by herself and occasionally uses cane. 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 PERSONAL HISTORY: Smokes 3 to 4 cigarettes a day. Does not abuse alcohol or drugs. She lives alone. FAMILY HISTORY: Both parents are . Mother was 63 when she . Father was 83. ALLERGIES: ALLERGIC TO ULTRAM. CURRENT MEDICATIONS: The patient is on; 1. Albuterol inhaler q.6 hourly p.r.n. 2. Norvasc 10 mg daily. 3. Calcitriol 0.25 mcg p.o. daily. 4. Lexapro 5 mg daily. 5. Flovent Diskus 50 mcg inhaler daily. 6. Hydralazine 50 mg three times daily. 7. Bystolic 10 mg daily. 8. Protonix 40 mg daily. 9. Allopurinol 100 mg p.o. daily. CODE STATUS: Full. REVIEW OF SYSTEMS: CONSTITUTIONAL: Negative for weight loss or gain, ability to conduct usual activities. SKIN: Negative for rash, itching. EYES: Negative for double vision, pain. ENT/MOUTH: Negative for nose bleeding, neck stiffness, pain, tenderness. CARDIOVASCULAR: Negative for palpitations, dyspnea on exertion, orthopnea. RESPIRATORY: Negative for shortness of breath, wheezing, cough, hemoptysis, fever or night sweats. GASTROINTESTINAL: Negative for poor appetite, abdominal pain, heartburn, nausea , vomiting, constipation, or diarrhea. GENITOURINARY: Negative for urgency, frequency, dysuria, nocturia. MUSCULOSKELETAL: Negative for pain, swelling. NEUROLOGIC/PSYCHIATRIC: Negative for anxiety, depression. ALLERGY/IMMUNOLOGIC: Negative for skin rash, bleeding tendency. PHYSICAL EXAMINATION: GENERAL: The patient is a 63-year-old female, who is currently not in any acute distress. VITAL SIGNS: Blood pressure of 200/104, pulse 80 per minute, respiratory rate 18 per minute, saturating 94% on room air. The patient was afebrile. NECK: Supple. No elevated JVD. HEENT: Eyes; extraocular muscles intact. Pupils reacting to light. Oral cavity, mucous membranes are dry. No exudates or congestion. CARDIOVASCULAR SYSTEM: S1, S2 heard. Regular rhythm. RESPIRATORY SYSTEM: Air entry 1+ bilateral. Scattered rhonchi plus bilateral. ABDOMEN: Soft. Bowel sounds heard. No tenderness, rigidity, or guarding. EXTREMITIES: No peripheral edema or calf tenderness. VASCULAR SYSTEM: Peripheral pulses 1+ bilateral. No ischemic ulcerations or gangrene. CENTRAL NERVOUS SYSTEM: No gross focal deficits noted. The patient is alert, awake, and oriented well. PSYCHIATRIC SYSTEM: The patient's mood is euthymic. No hallucinations or delusions. LABORATORY DATA: White count of 4.2, H and H of 10 and 30, platelet count 189, MCV is 89 with 55% neutrophils. Potassium 5.7, serum bicarb 25, BUN 41, creatinine 4.4, serum glucose 79. Clinical impression and Plan: Hypertensive urgency Volume overload hyperkalemia The patient has had placement of tunneled right internal jugular hemodialysis catheter placed this morning and has had placement of right brachiobasilic AV fistula. She is currently getting hemodialysis. We will continue her Norvasc, allopurinol, albuterol inhaler, calcitriol, Lexapro, hydralazine, DuoNebs p.r.n. , Nebivolol, and Protonix as before. The patient will likely be discharged in the morning if it is okay with Nephrology. She will be ambulated on the floor and will be on heart healthy renal diet. Will continue most of her home meds as mentioned above. Job ID: [id number] [facility]
[2019-05-13 17:26] VITALS: BMI 22.4
--- NOTE | 2019-05-13 20:26 | CON ---
DATE OF CONSULTATION: 05/13/2019 CONSULTING PHYSICIAN: Dr. Murillo. REASON FOR CONSULTATION: End-stage renal disease evaluation care. REASON FOR ADMISSION: Hyperkalemia. HISTORY OF PRESENT ILLNESS: This is a 63-year-old female with history of end-stage renal disease, on hemodialysis; hypertension; and she came for the access evaluation and surgery. She had a dialysis catheter placement. She does have a fistula, which is being clotted and Dr. Murillo put a catheter today. Postop, she was found to have potassium of 5.7 and fluid overload and was getting admitted. No fever or chills. No nausea or vomiting. PAST MEDICAL HISTORY: Positive for; 1. End-stage renal disease. 2. Hypertension. 3. COPD. PAST SURGICAL HISTORY: 1. Breast biopsy. 2. Hysterectomy. 3. Right nephrectomy. HOME MEDICATIONS: Reviewed. ALLERGIES: TRAMADOL. SOCIAL HISTORY: Remote history of smoking. No alcohol or illicit drug abuse. FAMILY HISTORY: No history of any kidney disease. REVIEW OF SYSTEMS: CONSTITUTIONAL: Negative for weight loss or gain, ability to conduct usual activities. SKIN: Negative for rash, itching. EYES: Negative for double vision, pain. ENT/MOUTH: Negative for nose bleeding, neck stiffness, pain, tenderness. CARDIOVASCULAR: Negative for palpitations, dyspnea on exertion, orthopnea. RESPIRATORY: Negative for shortness of breath, wheezing, cough, hemoptysis, fever or night sweats. GASTROINTESTINAL: Negative for poor appetite, abdominal pain, heartburn, nausea, vomiting, constipation, or diarrhea. GENITOURINARY: Negative for urgency, frequency, dysuria, nocturia. MUSCULOSKELETAL: Negative for pain, swelling. NEUROLOGIC/PSYCHIATRIC: Negative for anxiety, depression. ALLERGY/IMMUNOLOGIC: Negative for skin rash, bleeding tendency. PHYSICAL EXAMINATION: GENERAL: This is a well-built female, in no apparent distress. VITAL SIGNS: Temperature 98.6, pulse 70, respiratory rate 18, blood pressure 130/70. HEENT: Atraumatic, normocephalic. Oral mucosa is moist. NECK: Supple. CV: S1, S2 heard. Rate and rhythm regular. RESPIRATORY: Clear. GI: Abdomen is soft. MUSCULOSKELETAL: 1+ edema. DERMATOLOGIC: No skin rash. NEUROLOGIC: Alert and awake. PSYCHIATRIC: Mood and affect normal. LABORATORY DATA: Hemoglobin is 9.9, potassium is 5.7, BUN is 41, and creatinine is 4.4. ASSESSMENT AND PLAN: 1. End-stage renal disease. Continue on hemodialysis as tolerated. 2. Hyperkalemia. 3. Edema. 4. History of hypertension. 5. Anemia. Plan is to continue on dialysis as tolerated. Job ID: [id number]
[2019-05-14 05:07] LABS: #Eosinphils 0.1 thou/uL (0.0-0.7); #Lymphocytes 1.4 thou/uL (1.20-3.40); #Monocytes 0.4 thou/uL (0.11-0.59); %Basophils 0.5 % (0.0-1.0); %Eosinophils 2.3 % (0.0-10.0); %Lymphocytes 27.6 % (21.0-51.0); %Monocytes 8.5 % (0.0-10.0); %Neutrophils 61.1 % (42.0-75.0); Hemoglobin 11.7 g/dL (12.0-16.0); Mean Corpuscular HGB CONC 30.4 g/dL (32.0-36.0); Mean Corpuscular Hemoglobin 26.8 pg (27.0-31.0); Mean Platelet Volume 9.5 fL (7.4-10.4); Platelet Count 170 thou/uL (130-400); RBC Distribution Width 17.3 % (11.5-14.5); Red Blood Cell (RBC) Count 4.37 mill/uL (4.20-5.40); White Blood Cell (WBC) Count 4.9 thou/uL (4.8-10.8)
[2019-05-14 05:34] LABS: Anion Gap 14 mmol/L (10-20); BUN (Urea Nitrogen) 17 mg/dL (9.8-20.1); BUN/Creatinine Ratio 5.76; Calc. Creatinine Clearance 16 mL/min (70-130); Calcium 9.5 mg/dL (7.8-10.44); Carbon Dioxide 29 mmol/L (23-31); Chloride 98 mmol/L (98-107); Estimated GFR-MDRD 19; Glucose 84 mg/dL (80-115); Phosphorus 3.9 mg/dL (2.3-4.7); Potassium 4.7 mmol/L (3.5-5.1); Sodium 136 mmol/L (136-145)
[2019-05-14] MEDS: Ipratropium Bromide 2.5 ml Neb NEB SCH (07:49)
[2019-05-14] MEDS: hydrALAZINE 25 MG TAB PO SCH (07:50)
[2019-05-14] MEDS ORDERED: Enoxaparin Sodium 30 MG/0.3 ML SYRINGE SC SCH (09:00)
[2019-05-14] MEDS ORDERED: Amlodipine 10 MG TAB PO SCH (09:00)
[2019-05-14] MEDS ORDERED: Nebivolol HCl 5 MG TAB PO SCH (09:00)
[2019-05-14] MEDS ORDERED: Escitalopram Oxalate 10 mg Tablet PO SCH (09:00)
[2019-05-14] MEDS ORDERED: Allopurinol 100 MG TAB PO SCH (09:00)
[2019-05-14] MEDS ORDERED: Calcitriol 0.25 MCG CAP PO SCH (09:00)
--- NOTE | 2019-05-14 11:07 | PDOC.HOSPP ---
- Subjective Encounter Date: 05/14/19 Encounter Time: 11:05 Subjective: Mr. Aleman was seen today in follow-up of AV fistula malfunction. She does not have any new complaints. - Objective Vital Signs & Weight: Vital Signs (12 hours) Temp Pulse Resp BP BP Pulse Ox 05/14/19 07:49 64 12 05/14/19 07:48 98.8 F 69 15 187/81 H 97 05/14/19 04:25 98.7 F 70 18 168/81 H 98 05/13/19 23:19 98.8 F 69 20 163/70 H 95 Weight Weight 120 lb 2.431 oz I&O: 05/13/19 05/14/19 05/15/19 06:59 06:59 06:59 Intake Total 200 Output Total 400 Balance -200 Result Diagrams: 05/14/19 04:57 05/14/19 04:57 Hospitalist ROS - Medication Medications: Active Medications Generic Name Dose Route Start Last Admin Trade Name Freq PRN Reason Stop Dose Admin Acetaminophen 650 mg 05/13/19 10:26 05/13/19 19:29 Tylenol PO 650 mg Q4H PRN Administration Headache/Fever/Mild Pain (1-3) Allopurinol 100 mg 05/14/19 09:00 05/14/19 07:51 Zyloprim PO Not Given DAILY TRESA Amlodipine Besylate 10 mg 05/14/19 09:00 05/14/19 07:50 Norvasc PO 10 mg DAILY TRESA Administration Calcitriol 0.5 mcg 05/14/19 09:00 05/14/19 07:50 Rocaltrol PO 0.5 mcg DAILY TRESA Administration Enoxaparin Sodium 30 mg 05/14/19 09:00 05/14/19 07:52 Lovenox SC 30 mg 09 TRESA Administration Escitalopram Oxalate 5 mg 05/14/19 09:00 05/14/19 07:52 Lexapro PO Not Given DAILY TRESA Hydralazine HCl 50 mg 05/13/19 15:00 05/14/19 07:50 Apresoline PO 50 mg TID TRESA Administration Ipratropium [place]ier 2.5 ml 05/13/19 13:00 05/14/19 07:49 Atrovent NEB 2.5 ml [id number] TRESA Administration Nebivolol 10 mg 05/14/19 09:00 05/14/19 07:50 Bystolic PO 10 mg DAILY TRESA Administration Pantoprazole Sodium 40 mg 05/14/19 09:00 05/14/19 07:51 Protonix PO 40 mg DAILY TRESA Administration - Exam Eye: PERRL, anicteric sclera Heart: RRR, no murmur, no gallops, no rubs, normal peripheral pulses Respiratory: CTAB, no wheezes, no rales, no ronchi, normal chest expansion, no tachypnea, normal percussion Gastrointestinal: soft, non-tender, non-distended, normal bowel sounds, no palpable masses, no hepatomegaly, no splenomegaly Extremities: no cyanosis, no edema Hosp A/P (1) Dialysis AV fistula malfunction Code(s): T82.590A - [facility] COMPL OF SURGICALLY CREATED ARTERIOVENOUS FISTULA, INIT Status: Acute (2) End stage renal disease on dialysis Code(s): N18.6 - END STAGE RENAL DISEASE; Z99.2 - DEPENDENCE ON RENAL DIALYSIS Status: Chronic (3) Hypertension Code(s): I10 - ESSENTIAL (PRIMARY) HYPERTENSION Status: Chronic - Plan * AV fistula malfunction- she had a temporary catheter placed, and new AV fistula * HTN-Blood pressure is a bit elevated earlier, but most recent was 127/74 * Stable for discharge home.
[2019-05-14 11:22] VITALS: BP 129/71; TEMP 99.1
--- NOTE | 2019-05-14 11:40 | DIS ---
DATE OF ADMISSION: 05/13/2019 DATE OF DISCHARGE: 05/14/2019 DISCHARGE DISPOSITION: Home. DISCHARGE DIAGNOSES: 1. Malfunctioning arteriovenous fistula. 2. End-stage renal disease, on hemodialysis. 3. Hypertension. 4. Chronic obstructive pulmonary disease. 5. Asthma. DISCHARGE MEDICATIONS: Include; 1. Protonix 40 mg daily. 2. Zofran 8 mg twice daily. 3. Bystolic 10 mg daily. 4. Hydralazine 50 mg p.o. t.i.d. 5. Lasix 40 mg daily. 6. Flovent inhaler daily. 7. Calcitriol 0.25 mcg p.o. daily. 8. Amlodipine 10 mg daily. 9. ProAir inhaler every 6 hours. CODE STATUS: Full code. ALLERGIES: TO TRAMADOL. PROCEDURES DONE DURING ADMISSION: The patient had the placement of a right IJ tunneled hemodialysis catheter and also had the development of a right brachiocephalic AV fistula. HOSPITAL COURSE: Ms. Aleman is a very pleasant 63-year-old female, who presented to the emergency room after she was noted to have a clotted AV fistula. She was seen by Dr. Murillo, who placed a temporary catheter in as well as developed an AV fistula in the right brachiocephalic. She tolerated the procedure well. She was dialyzed during her hospital stay. She also had hyperkalemia on admission. This was corrected with dialysis and the following day, she was able to be discharged home in stable condition and to follow up with in 1 week and also with Dr. Langford as instructed. Job ID: [id number]
--- NOTE | 2019-05-14 14:38 | PRG ---
DATE OF SERVICE: 05/14/2019 SUBJECTIVE: Patient was seen and examined at bedside and overnight events noted. Patient denies any shortness of breath or chest pain or palpitation. No history of nausea or vomiting or diarrhea or fever or chills or cramps. OBJECTIVE: GENERAL: This is a thin built female, in no apparent distress. VITAL SIGNS: Temperature 99.1. Heart rate 72. Respiratory rate 16. Blood pressure 129/71. HEENT: Atraumatic, normocephalic. Oral mucosa is moist NECK: Supple. CARDIOVASCULAR: S1, S2 heard. Rate and rhythm regular. RESPIRATORY: Clear to auscultation. GASTROINTESTINAL: Abdomen is soft. MUSCULOSKELETAL: No tenderness. No edema. DERMATOLOGIC: No skin rash. NEUROLOGIC: Alert and awake and oriented X3. No focal neurologic deficits. Moving all the extremities. PSYCHIATRIC: Mood and affect normal. LABORATORY DATA: Potassium 4.7, BUN 17, and creatinine 2.9. ASSESSMENT AND PLAN: 1. End-stage renal disease, continue on hemodialysis as tolerated. 2. Edema. 3. Hypertension. 4. Chronic anemia. Plan to continue on dialysis as tolerated. Job ID: [id number]
[2019-05-14] MEDS ORDERED: Mometasone Furoate 120 PUFF 220 MCG INH SCH (18:30)
--- NOTE | 2019-05-18 17:42 | EKG ---
Test Reason : PREOP Blood Pressure : / mmHG Vent. Rate : 063 BPM Atrial Rate : 063 BPM P-R Int : 152 ms QRS Dur : 090 ms QT Int : 434 ms P-R-T Axes : 060 074 068 degrees QTc Int : 444 ms Normal sinus rhythm Moderate voltage criteria for LVH, may be normal variant Borderline ECG When compared with ECG of 02-NOV-2018 17:42, No significant change was found Confirmed by DR. Amando ROLDAN ([id number]) on 05/18/2019 5:41:58 PM Referred By: AMEE Confirmed By:DR. Amando ROLDAN
== END 2019-05-14 11:50 | disposition home or self-care (01) ==
LOC: SDC 07:25 → 2SW 13:43
PROVIDERS: ADMIT Internal Medicine; ATTEND Surgery
PROC: 03170ZD Bypass Right Brachial Artery to Upper Arm Vein, Open Approach (ICD-10-PCS; principal; 2019-05-13)
PROC: 05HM33Z Insertion of Infusion Device into Right Internal Jugular Vein, Percutaneous Approach (ICD-10-PCS; 2019-05-13)
DX: I12.0 Hypertensive chronic kidney disease with stage 5 chronic kidney disease or end stage renal disease (principal); N18.6 End stage renal disease; D63.1 Anemia in chronic kidney disease; T82.868A Thrombosis due to vascular prosthetic devices, implants and grafts, initial encounter; E87.5 Hyperkalemia; E78.00 Pure hypercholesterolemia, unspecified; J43.9 Emphysema, unspecified; M06.9 Rheumatoid arthritis, unspecified; F32.9 Major depressive disorder, single episode, unspecified; F17.210 Nicotine dependence, cigarettes, uncomplicated; E78.5 Hyperlipidemia, unspecified; E87.70 Fluid overload, unspecified; I16.0 Hypertensive urgency; Z79.899 Other long term (current) drug therapy; Z88.5 Allergy status to narcotic agent; Z90.2 Acquired absence of lung [part of]; Z90.5 Acquired absence of kidney; Z99.2 Dependence on renal dialysis
CPT/HCPCS: 36558; 36821; 71045; 80048; 80069; 85025 ×2; 93005; 94640 ×3; 96372; C1752; C1769; G0378 ×2; 36415; 90935; 93010; G0257; J0670; J0690; J1642; J1644; J1650; J2001; J2250; J2405; J2704; J2720; J3010; Q9967; S0020

== ENCOUNTER 2019-06-28 10:34 | Day surgery (SDC) | payer MEDICARE, MEDICAID ==
[2019-06-27 13:08] VITALS: BMI 23.2
[~2019-06-28 10:34] MED LIST: Bupivacaine HCl 0.5%/Epinephrine 1:200,000/PF 30 ml Vial ONE
[2019-06-28 11:32] LABS: #Lymphocytes 1.3 thou/uL (1.20-3.40); #Monocytes 0.5 thou/uL (0.11-0.59); #Neutrophils 2.1 thou/uL (1.40-6.50); %Basophils 0.2 % (0.0-1.0); %Eosinophils 0.6 % (0.0-10.0); %Lymphocytes 33.1 % (21.0-51.0); %Monocytes 12.6 % (0.0-10.0); %Neutrophils 53.5 % (42.0-75.0); Hemoglobin 12.9 g/dL (12.0-16.0); Mean Corpuscular Volume 83.8 fL (78.0-98.0); Platelet Count 165 thou/uL (130-400); RBC Distribution Width 17.1 % (11.5-14.5); Red Blood Cell (RBC) Count 4.97 mill/uL (4.20-5.40)
[2019-06-28 12:06] LABS: Anion Gap 15 mmol/L (10-20); BUN (Urea Nitrogen) 28 mg/dL (9.8-20.1); Calc. Creatinine Clearance 13 mL/min (70-130); Calcium 9.8 mg/dL (7.8-10.44); Carbon Dioxide 24 mmol/L (23-31); Chloride 100 mmol/L (98-107); Estimated GFR-MDRD 13; Glucose 83 mg/dL (80-115); Potassium 4.4 mmol/L (3.5-5.1); Sodium 135 mmol/L (136-145)
[2019-06-28] MEDS ORDERED: Fentanyl 100 MCG/2 ML VIAL ONE ×2 (12:08→12:56)
[2019-06-28] MEDS ORDERED: Propofol 500 MG/50 ML VIAL ONE ×2 (12:26→12:31)
[2019-06-28] MEDS ORDERED: Midazolam HCl 2 mg/2 ml Vial ONE (12:26)
[2019-06-28] MEDS ORDERED: Protamine Sulfate 50 MG/5 ML VIAL ONE (12:33)
[2019-06-28] MEDS ORDERED: Bupivacaine 0.25% HCL 30 ML VIAL ONE (12:33)
[2019-06-28] MEDS ORDERED: Heparin 5,000 UNITS/ML VIAL ONE (12:33)
[2019-06-28] MEDS ORDERED: Lidocaine 1% w/Epinephrine 1:100K 20 ML VIAL ONE (12:33)
[2019-06-28] MEDS ORDERED: Ondansetron PF 4 MG/2 ML Vial ONE (12:37)
[2019-06-28] MEDS ORDERED: Heparin 10,000 UNITS/ 10 ML VIAL ONE (17:16)
--- NOTE | 2019-07-05 08:13 | PDOC.OP ---
Operative Note - Operative Note Operative Note: DATE OF PROCEDURE: 06/28/2019 PROCEDURE: Right basilic vein transposition fistula. SURGEON: Theo Murillo M.D. PREOPERATIVE DIAGNOSIS: End-stage renal failure. POSTOPERATIVE DIAGNOSIS: End-stage renal failure. HISTORY: Patient with end-stage renal failure who has a right upper arm basilic fistula which requires transposition to be accessible. DESCRIPTION OF PROCEDURE: After informed consent was obtained and appropriate neuromuscular blockade was administered, the patient was taken to the operating room and placed in supine position. The arm was prepped and draped in a standard sterile fashion and adequacy of block was confirmed. The distal basilic vein was dissected out to its anastomosis with the artery. This was done with some difficulty due to scarring of the vein due to its previous mobilization and tunneling today artery. The basilic vein was then dissected free to the level of its confluence with the axillary vein, ligating side branches as they were encountered. A 12 mm tunneler was obtained and brought up from the antecubital to the axillary area. The 12 mm tip was removed and a 6 mm tip placed. Heparin was then administered systemically and allowed to circulate for 3 minutes. The vein was marked for orientation, clamped and divided near the arterial anastomosis. The basilic vein was compressed at the level of the axilla and heparinized saline was instilled, distending the vein. The vein was checked for leaks and none were seen. The vein was then flushed with heparinized saline and a bulldog clamp placed at the level of the axilla. The basilic vein was secured to the tunneler and drawn down through the subcutaneous tunnel being careful not to twist the vein. This was found easily to reach to the proximal basilic vein. The basilic vein was spatulated and an end-to-end anastomosis was created with a running 6-0 Prolene suture with excellent technical result. Prior to completing the anastomosis, the inflow was released, flushing the anastomosis. The anastomosis was then completed, all clamps were removed and hemostasis verified. There was an excellent thrill through the basilic fistula which was readily palpable beneath the skin. The inner arm wound was then irrigated and hemostasis obtained with Bovie electrocautery. The subcutaneous tissues were closed in two layers with 3-0 Monocryl suture following which the skin incision was closed with skin vickie. A surface VAC dressing was placed and the arm was wrapped with an Otilio wrap. The patient was taken to the recovery room in good condition. Estimated blood loss was minimal. There were no complications. There were no specimens.
== END 2019-06-28 17:35 | disposition home or self-care (01) ==
LOC: SDC 10:34
PROVIDERS: ATTEND Surgery
PROC: 05SB0ZZ Reposition Right Basilic Vein, Open Approach (ICD-10-PCS; principal; 2019-06-28)
DX: I12.0 Hypertensive chronic kidney disease with stage 5 chronic kidney disease or end stage renal disease (principal); N18.6 End stage renal disease; E78.00 Pure hypercholesterolemia, unspecified; J43.9 Emphysema, unspecified; M06.9 Rheumatoid arthritis, unspecified; F32.9 Major depressive disorder, single episode, unspecified; Z79.899 Other long term (current) drug therapy; Z88.5 Allergy status to narcotic agent; Z90.5 Acquired absence of kidney; Z99.2 Dependence on renal dialysis
CPT/HCPCS: 80048; 85025; J0670; J0690; J1644; J2250; J2405; J2704; J2720; J3010; S0020